=== PATIENT | male | born 1955 | race Caucasian/White ===

== ENCOUNTER 2023-11-22 09:24 | Outpatient (CLI) | payer MEDICARE, SELFPAY ==
[2023-11-22 10:13] LABS: Basophils % 0.7 % (0.1-2.0); Eosinophils # 0.3 K/mm3 (0.0-0.4); Eosinophils % 5.7 % (0.1-12.0); Hemoglobin 15.1 g/dL (14.1-18.0); Lymphocytes # 1.4 K/mm3 (0.7-4.5); Lymphocytes % 22.4 % (10-50); Mean Corpuscular HGB Conc 32.8 g/dL (31.8-35.4); Mean Corpuscular Volume 97.6 fl (80-94); Mean Platelet Volume 8.1 fl (7.4-10.4); Monocytes # 0.6 K/mm3 (0.1-1.0); Monocytes % 9.3 % (1.7-9.3); Neutrophils # 3.8 K/mm3 (1.8-7.8); Platelet Count 316 K/mm3 (142-424); Red Blood Count 4.71 M/mm3 (4.60-6.20); Red Cell Distribution Width 12.8 % (11.5-17.5); White Blood Count 6.1 K/mm3 (4.8-10.8)
[2023-11-22 10:33] LABS: Alanine Aminotransferase 14 U/L (12-78); Alkaline Phosphatase 82 U/L (38-126); Aspartate Amino Transferase 32 U/L (17-59); Bilirubin,Total 0.9 mg/dl (0.2-1.3); Blood Urea Nitrogen 7 mg/dl (9-20); Calcium 9.4 mg/dl (8.4-10.2); Carbon Dioxide 26 mmol/L (22.0-30.0); Chloride 98 mmol/L (98-107); Cholesterol 219 mg/dl (140-200); Estimated Glomerular Filt Rate 111 ml/min (>60); GFR (African American) 135 ML/MIN (>60); Glucose 106 mg/dl (74-100); Triglycerides 62 mg/dl (30-150); VLDL Cholesterol 12 mg/dL (0-40)
[2023-11-22 10:43] LABS: Albumin Level 4.2 g/dl (3.5-5.0); Albumin/Globulin Ratio 1.3 (1.1-1.8); Anion Gap 9.2 mEq/L (5-15); Chol/HDL Ratio 2.6 (1-3.5); Globulin 3.2 g/dL (1.3-3.2); HDL Cholesterol 85 mg/dl (40-60); Potassium 5.2 mmoL/L (3.5-5.1); Sodium 128 mmol/L (136-145); Total Protein,Serum 7.4 g/dl (6.3-8.2)
[2023-11-22 10:44] LABS: Direct LDL Cholesterol 106.85 mg/dL (100-129)
[2023-11-22 11:04] LABS: Prostate Specific Ag Screen 6.4 ng/ml (0.0-4.0); Thyroid Stimulating Hormone 2.34 uIU/mL (0.465-4.68)
== END 2023-11-22 23:59 ==
PROVIDERS: PCP Nurse Practitioner Family; Visit Provider Nurse Practitioner Family
DX: R03.0 Elevated blood-pressure reading, without diagnosis of hypertension; E87.1 Hypo-osmolality and hyponatremia; Z12.5 Encounter for screening for malignant neoplasm of prostate
CPT/HCPCS: 36415; 80053; 80061; 82533; 84443; 85025; G0103

== ENCOUNTER 2023-12-05 08:52 | Outpatient (CLI) | payer MEDICARE, SELFPAY ==
[2023-12-05 09:06] LABS: Microscopic, Urine URINE MICROSCOPIC (MICROSCOPIC)
--- NOTE | 2023-12-05 09:35 | XR_ITS ---
FINAL REPORT CLINICAL HISTORY: COUGH,HYPONATREMIA FINDINGS: TWO-VIEW CHEST The heart size is normal. The mediastinum is normal. The lungs are clear. There is no pneumothorax. IMPRESSION: No acute cardiopulmonary process. Reviewed, Interpreted and Dictated by Levi Smith MD Transcribed by Zoë Redd Authenticated and [facility]
[2023-12-05 09:40] LABS: Appearance,Urine CLEAR (Clear); Bilirubin,Urine Negative (Negative); Blood, Urine Negative (Negative); Color,Urine YELLOW (Yellow); Glucose,Urine (UA) Negative (Negative); Ketones,Urine Negative (Negative); Leukocyte Esterase,Urine TRACE (Negative); Nitrate,Urine Negative (Negative); Protein,Urine Negative (Negative); Urobilinogen,Urine 0.2 EU/dl (0.2)
[2023-12-05 10:47] LABS: Chloride 98 mmol/L (98-107); Potassium 4.4 mmoL/L (3.5-5.1); Sodium 129 mmol/L (136-145)
[2023-12-05 10:50] LABS: Anion Gap 10.4 mEq/L (5-15); Blood Urea Nitrogen 8 mg/dl (9-20); Calcium 8.6 mg/dl (8.4-10.2); Carbon Dioxide 25 mmol/L (22.0-30.0); Estimated Glomerular Filt Rate 96 ml/min (>60); GFR (African American) 116 ML/MIN (>60); Glucose 93 mg/dl (74-100)
[2023-12-05 11:54] LABS: Squamous Epithelial Cell,Urine Occasional #/hpf (0-5)
[2023-12-06 09:14] LABS: PSA, Free 0.51 ng/mL; Prostate Specific Ag 4.1 ng/mL (0.0-4.0)
[2023-12-06 10:14] LABS: Sodium, Urine 64 mmol/L (Not Estab.)
[2023-12-07 06:21] LABS: Osmolality, Urine 302 mOsmol/kg (.)
== END 2023-12-05 23:59 ==
LOC: RAD 08:57
PROVIDERS: PCP Nurse Practitioner Family; Visit Provider Nurse Practitioner Family
DX: R05.3 Chronic cough (principal); E87.1 Hypo-osmolality and hyponatremia; E87.5 Hyperkalemia; R97.20 Elevated prostate specific antigen [PSA]
CPT/HCPCS: 36415; 71046; 80048; 81001; 83935; 84153; 84154; 84300

== ENCOUNTER 2023-12-26 10:00 | Outpatient (CLI) | payer MEDICARE, BC, SELFPAY ==
--- NOTE | 2023-12-26 10:04 | CT_ITS ---
FINAL REPORT CLINICAL HISTORY: CHRONIC COUGH COMPARISON: None FINDINGS: Axial CT images of the chest were obtained with contrast. Coronal and sagittal reformatted images were also obtained. This study was performed with techniques to keep radiation doses as low as reasonably achievable, (ALARA). Individualized dose reduction techniques using automated exposure control or adjustment of mA and/or KV according to the patient's size were employed. There is no evidence of mediastinal or hilar mass or adenopathy. No axillary mass or adenopathy is identified. A hiatal hernia is present, small. Moderate coronary artery calcifications are present. There are mild changes of emphysema and mild scarring. There is a 16 mm spiculated nodule in the posterior right upper lobe along the major fissure, worrisome for neoplasm. No localized pulmonary inflammatory process is identified. Limited images of the upper abdomen reveal no mass or localized inflammatory process. IMPRESSION: 16 mm spiculated mass in the right upper lobe posteriorly, along the major fissure. This mass is worrisome for neoplasm. Would recommend either PET CT or possible CT-guided biopsy. Reviewed, Interpreted and Dictated by Renzo Benitez III, MD Transcribed by Lindsay Baker Authenticated and . [facility]
[2023-12-26] MEDS: IOPAMIDOL-370 (76%);100ML BOTTLE 75 ML IV (10:21)
[2023-12-26] MEDS: SODIUM CHLORIDE 0.9% 10ML SYR (RAD ONLY) 10 ML IV (10:21)
== END 2023-12-26 23:59 ==
PROVIDERS: PCP Nurse Practitioner Family; Visit Provider Nurse Practitioner Family
DX: R05.3 Chronic cough (principal); E87.1 Hypo-osmolality and hyponatremia
CPT/HCPCS: 71260; Q9967

== ENCOUNTER 2024-04-01 09:27 | Day surgery (SDC) | payer MEDICARE, BC, SELFPAY ==
[2024-03-31 09:53] VITALS: BMI 25.0
[2024-04-01] VITALS (15 sets, daily range): BP systolic 131–178; BP diastolic 74–95; PULSE 76–91; RESP 18; TEMP 36.4–37.1; O2SAT 91–100; BMI 25.0
[2024-04-01] MEDS: LACTATED RINGERS 1000ML 1,000 ML 100 ML IV (09:40)
--- NOTE | 2024-04-01 09:57 | HMH.SCOPE ---
Procedure: Date: 04/01/24 Patient Date of :: 1955 Procedure Performed:: Colonoscopy with polypectomy Indications:: Positive Cologuard Performing Provider:: Ulisses Edwards MD Referring Provider:: . Sedation:: Monitored anesthesia care Procedure:: After informed consent was obtained the patient was taken to the endoscopy suite. Sedation ensued after the patient was transferred to the left lateral decubitus position. Pulse, blood pressure, and oxygen saturation were monitored throughout the procedure. Digital rectal exam revealed no significant abnormality. The colonoscope was placed in position. The entire colon was evaluated. The colonoscope was carefully removed and the patient was transferred to recovery in stable condition. Please see findings and specimens below for detail. Findings:: Bowel preparation fair to moderate Fairly severe spasticity/lack of relaxation Moderate tortuosity Mild prostatic enlargement Mild sigmoid diverticulosis Polyps (see specimens) Specimens:: Large complex lobulated sessile polyp at 60 cm (cold snare and tattoo) Polyp at 25 cm (cold snare) Recommendations:: Timing of repeat colonoscopy is pending pathology but likely be around 3 months with extended bowel preparation secondary to fair to moderate preparation, spasticity/lack of relaxation, and size/nature of polyp at 60 cm (note piecemeal cold snare excision and tattoo placement) Complications:: No immediate Estimated blood obtained (mL): 1 Colonoscopy Component Colonoscopy Component Was a colonoscopy performed during today's procedure?: Yes Recommended follow up colonoscopy of at least 10 years?: No If no, follow up colonoscopy recommended in ___ years?: (See above) Reason for not recommending >/= 10 yr follow-up interval?: (See above)
--- NOTE | 2024-04-01 10:04 | P.PNANES_ITS ---
[facility] Disclaimer: The information contained in this section may have been updated after the patient was seen, as this information can be updated by other users. Medical History Nodule of right lung Surgical History History of surgery on upper extremity History of hernia surgery Family History Other Diabetes Hypertension Social History Smoking Status: Former smoker alcohol intake: never substance use type: denies use current occupational status: retired Travel in the last 8 weeks: None [facility] Anesthesia Checklist Patient Identification Patient Identification: Arm Band and Verbal (Name & ) Structural Data Admitted From: Home Planned Operative Procedure/s: Colonoscopy Consent for Planned Operative Procedure(s) Verified: Yes Verified Documents: Surgical Consent and History and Physical NPO Status Verified Time NPO: 08:00 Chart Verification Results Verified: CBC, BMP and Chest Xray Additional verifications Patient : No Anesthesia Reactions: No Cardiovascular Assessment Heart Sounds: S1 & S2 Pulse Rhythm: Irregular Peripheral Edema: No Airway Assessment Mallampati Score:: Class II C-Spine Mobility Assessed: Yes (FROM) Dentition: Partials (Nothing loose per pt.) Neurological Assessment Level of Consciousness: Awake, Alert, Appropriate and Follows Commands Hx Seizures: No Numbness or tingling in extremities: No Anesthesia Plan Anesthesia Risk discussed: Yes Anesthesia Plan: Verified ASA Class: II Anesthesia Type: MAC
--- NOTE | 2024-04-01 10:54 | P.PNANES_ITS ---
[facility] Anesthesia Record Part I Anesthesia Record I Intake, IV Amount: 400 Hydration: Adequate Estimated blood loss (mL): 5 Urine output (mL): 0 Blood Products used (#): none Blood Pressure: 131/74 SaO2: 100 Pulse Rate: 80 Airway Patency: Patent Respiratory Rate: 18 Temperature: 98.8 F Patient is:: Awake (Talking) and Stable Stable to PACU at:: 10:55
== END 2024-04-01 12:50 | disposition home or self-care (01) ==
PROVIDERS: PCP Nurse Practitioner Family; Visit Provider Surgery
PROC: 0DJD8ZZ Inspection of Lower Intestinal Tract, Via Natural or Artificial Opening Endoscopic (ICD-10-PCS; CPT 45378; principal; 2024-04-01 10:30)
DX: R19.5 Other fecal abnormalities (principal); K56.2 Volvulus; N40.0 Benign prostatic hyperplasia without lower urinary tract symptoms; K57.30 Diverticulosis of large intestine without perforation or abscess without bleeding; D12.4 Benign neoplasm of descending colon; K63.5 Polyp of colon
CPT/HCPCS: 45385

== ENCOUNTER 2024-04-25 14:48 | Outpatient (CLI) | payer MEDICARE, BC, SELFPAY ==
--- NOTE | 2024-04-25 14:49 | CT_ITS ---
FINAL REPORT TECHNIQUE: Axial CT images were performed from the lung apices through the upper abdomen. Coronal and sagittal reformats were submitted. This study was performed with techniques to keep radiation doses as low as reasonably achievable (ALARA). Individualized dose reduction techniques using automated exposure control or adjustment of mA and/or kV according to the patient's size were employed. CLINICAL HISTORY: 3-month follow-up RUL COMPARISON: 12/26/2023 FINDINGS: There is no axillary adenopathy. There is no hilar or mediastinal mass or adenopathy. Severe left coronary artery calcifications are again noted. Heart size is normal. There is wall thickening of the thoracic esophagus, which is nonspecific and favor inflammatory change. There is no pericardial or pleural effusion. Limited images of the upper abdomen are unremarkable. Mild changes of emphysema and mild scarring are present. The nodule seen on the prior CT of December 26 in the right upper lobe is visually larger now, measures 19 mm as opposed to 16 mm on the prior exam. No new nodules or masses identified. IMPRESSION: The nodule seen in the right upper lobe on the prior CT is larger, now measures 19 mm as opposed to 16 mm. Would recommend additional follow-up chest CT or biopsy. Nonspecific esophageal wall thickening, favor inflammatory. Correlation with endoscopy might be helpful. Reviewed, Interpreted and Dictated by Renzo Benitez III, MD Transcribed by Lindsay Baker Authenticated and . [facility]
== END 2024-04-25 23:59 | disposition home or self-care (01) ==
LOC: RAD 14:49
PROVIDERS: PCP Nurse Practitioner Family; Visit Provider Internal Medicine Pulmonary Disease
DX: R91.8 Other nonspecific abnormal finding of lung field (principal); Z87.891 Personal history of nicotine dependence
CPT/HCPCS: 71250

== ENCOUNTER 2024-07-22 08:21 | Day surgery (SDC) | payer MEDICARE, BC, SELFPAY ==
[2024-07-18 13:19] VITALS: BMI 24.3
--- OUTSIDE RECORDS SUMMARY | 2024-07-22 08:24 | XMS_ITS ---
Author Organization [facility] Address [address] [place] [address] Care Team Providers Care Temperature Control Inspector Name Role Phone Nehal Gopi Primary Care Provider GOPI CALVERT Unavailable Unavaila ble Allergies No Known Allergies Results Component Value Reference Range Notes M-Complete Blood Count Auto Diff Reviewed date:11/26/2023 01:48:48 PM Interpretation: Performing Lab: Notes/Report: WBC 6.1 4.8-10.8 K/mm3 RBC 4.71 4.60-6.20 M/mm3 HGB 15.1 14.1-18.0 g/dL HCT 46.0 42.0-52.0 % MCV 97.6 80-94 fl MCH 32.0 27.0-31.2 pg MCHC 32.8 31.8-35.4 g/dL RDW 12.8 11.5-17.5 % PLT 316 142-424 K/mm3 MPV 8.1 7.4-10.4 fl NE% 62.0 37.0-80.0 % LY% 22.4 10-50 % MO% 9.3 1.7-9.3 % EO% 5.7 0.1-12.0 % BA% 0.7 0.1-2.0 % NE# 3.8 1.8-7.8 K/mm3 LY# 1.4 0.7-4.5 K/mm3 MO# 0.6 0.1-1.0 K/mm3 EO# 0.3 0.0-0.4 K/mm3 BA# 0.0 0-0.2 K/mm3 M-Comprehensive Metabolic Pa ainsley Reviewed date:11/26/2023 01:48:48 PM Interpretation: Performing Lab: Notes/Report: NA 128 136-145 mmol/L K 5.2 3.5-5.1 mmoL/L CL 98 98-107 mmol/L CO2 26 22.0-30.0 mmol/L GAP 9.2 5-15 mEq/L BUN 7 9-20 mg/dl CREATT 0.70 0.66-1.25 mg/dl GFRAA 135 >60 ML/MIN EGFR 111 >60 ml/min GLU 106 74-100 mg/dl CA 9.4 8.4-10.2 mg/dl BILIT 0.9 0.2-1.3 mg/dl AST 32 17-59 U/L ALT 14 12-78 U/L TP 7.4 6.3-8.2 g/dl ALB 4.2 3.5-5.0 g/dl GLOB 3.2 1.3-3.2 g/dL AGRATIO 1.3 1.1-1.8 ALP 82 38-126 U/L M-Lipid Panel Reviewed date:11/24/2023 12:08:48 PM Interpretation: Performing Lab: Notes/Report: Patient Fasting? Y TRIG 62 30-150 mg/dl CHOL 219 140-200 mg/dl DLDL 106.85 100-129 mg/dL VLDL 12 0-40 mg/dL HDL 85 40-60 mg/dl CHLHDL 2.6 1-3.5 M-Prostate Specific Ag Scree n Reviewed date:11/26/2023 01:48:48 PM Interpretation: Performing Lab: Notes/Report: PSASC 6.4 0.0-4.0 ng/ml M-Thyroid Stimulating Hormon e Reviewed date:11/24/2023 12:08:40 PM Interpretation: Performing Lab: Notes/Report: TSH 2.34 0.465-4.68 uIU/mL Reason For Referral Reason Please send screenin g kit Diagnosis 1 Colon cancer screeni porter (Z12.11) Referral Organization [facility] Referring Provider First Name Gopi Referring Provider Last Name Nehal Referring Provider Speciality Family Pra ctice Referred Provider Martin pearce ence Referral Priority Routine REASON FOR VISIT Est. Care -check up, fasting Medications Medication SIG (Take, Route, Fr equency, Duration) Notes Start Date End Date Status ProAir HFA 90 mcg/inh 2 puff(s) inhaled every 6 hours as needed for cough or shortness of breath for 30 days Active Social History Tobacco Use: Social History Observation Description Date Details (start date - stop date) Former Smoker NA - NA Smoking: Question Answer Notes Are you a: former smoker How long has it been since you last smoked? > 10 years Problems Problem Type SNOMED Code ICD Code Onset Dates Problem Status W/U Status Risk Notes Problem 36985000 Chronic cough (R05.3) Active confirmed Problem 670284332 Blood pressure elevated without history of HTN (R03.0) Active confirmed Vital Signs Temperature 98.3 degrees Fahrenheit 11/22/19 24 Blood pressure systolic 154 mm Hg 11/22/19 24 Blood pressure diastolic 70 mm Hg 024 Heart Rate 92 /min 11/22/2023 Height 65.8 in 11/22/2023 Weight 158.4 lbs 11/22/2023 BMI 25.72 kg/m2 11/22/2023 Encounters Encounter Location Date Provider Diagnosis [facility] [address] [place] [address] 11/22/2023 Gopi Calvert Medicare annual wellness visit, initial Z00.00 ; Screening PSA (prostate specific antigen) Z12.5 ; Blood pressure elevated without history of HTN R03.0 ; Chronic cough R05.3 ; BMI 25.0-25.9,adult Z68.25 and Colon cancer screening Z12.11 Assessments Encounter Date Diagnosis (ICD Code) Assessment Notes Treatment Notes Treatment Clinical Notes 11/22/2023 Medicare annual wellness visit, initial (ICD-10 - Z00.00) Written reminders provided for PCV20 and Shingrix. Agrees to Cologuard testing. Does not quite meet criteria for lung cancer screening. 11/22/2023 Screening PSA (prostate specific antigen) (ICD-10 - Z12.5) 11/22/2023 Blood pressure elevated without history of HTN (ICD-10 - R03.0) encouraged to monitor outside of office, goal < 130/80, will need FU and treatment if elevated 11/22/2023 Chronic cough (ICD-10 - R05.3) 11/22/2023 BMI 25.0-25.9,adult (ICD-10 - Z68.25) 11/22/2023 Colon cancer screening (ICD-10 - Z12.11) Plan Of Treatment Medication Medication Name Sig Start Date Stop Date Notes ProAir HFA 90 mcg/inh 2 puff(s) inhaled every 6 hours as needed for cough or shortness of breath for 30 days Treatment Notes Assessment Notes Medicare annual wellness visit, initial Written reminders provided for PCV20 and Shingrix. Agrees to Cologuard testing. Does not quite meet criteria for lung cancer screening. Blood pressure elevated with out history of HTN encouraged to monitor outside of office, goal < 130/80, will need FU and treatment if elevated Referrals Referral Date Details 12/09/2023 12/09/2023, Please s end screening kit , [facility] cologuard Next Appt Details Follow Up: 1 Year, Reason: Progress Notes * MARYLeightonfaisalhDOB:1955 ( 68 yo M)Acc No.[id number]:11/22/2023 Patient:?MARYLeightonRuben Provider:?NATI Lombardi :1955???Age:68 Y???Sex:Male Navjot e:11/22/2023 Address:[address] [place] [address] , [place], [id number] Subjective: * Chief Complaints: * ???1. Est. Care -check up. 2 . Fasting. * HPI: ???gen:? New to [place]. Retired from [employer]. Always had annual exam with extensive labs, CXR, EKG because of occupational exposures, no complications ever noted. ?Multivitamin ?Requesting refill of albuterol inhaler, last filled over a year ago. Questionable asthma, at night, dry cough, resolves with one puff of albuterol. CXR negative in the past ?BP high at dental office about 2 months ago. * ROS:?RESPIRATORY:?no?Shortness of breath.?no?Chest pain.?no?Chest congestion.?Cough?yes.?CARDIOLOGY:?Reviewed, No Symptoms Reported:?Yes.?CONSTITUTIONAL:?Reviewed, No Symptoms Reported:?Yes.?DERMATOLOGY:?Reviewed, No Symptoms Reported:?Yes.?MALE REPRODUCTIVE:?Reviewed, No Symptoms Reported:?Yes.?GASTROENTEROLOGY:?Reviewed, No Symptoms Reported:?Yes.?MUSCULOSKELETAL:?Joint stiffness?yes,?intermittent.?NEUROLOGY:?Reviewed, No Symptoms Reported:?Yes.?PSYCHOLOGY:?Reviewed, No Symptoms Reported:?Yes.?UROLOGY:?Reviewed, No Symptoms Reported:?Yes.? * Medical History:?Medical His tory Verified. * Surgical History:?rt shoulde r repair 2016, hernia repair 2018. * Hospitalization/Major Diagno stic Procedure:?Denies Past Hospitalization. * Family History:?Father: dece ased, 86 yrs, natural causes.?Mother: , 80 yrs, natural causes.?Paternal Grand Father: .?Paternal Grand Mother: .?Maternal Grand Father: .?Maternal Grand Mother: .?Siblings: alive.?1 daughter(s) - healthy. .? * Social History:?Smoking?Are you a:?former smoker,?How long has it been since you last smoked??> 10 years.?Recreational drug use: no. Exercise: yes. Home smoke detector use: yes. Caffeine: yes, frequency: coffee. Living Will: No. Alcohol: socially, Type: , Frequency: ,Years: , Determination:. Sexually active: yes. Travel outside [place]: no. Occupation: Retired. * Medications:?Taking ProAir H FA 90 mcg/inh aerosol 2 puff(s) inhaled every 6 hours , Medication List reviewed and reconciled with the patient * Allergies:?N.K.D.A. Objective: * Vitals:?Nurse: angie, Temp: 98. 3, RR: 18, HR: 92, BP: 154/70, Ht: 65.8, Wt: 158.4, BMI:25.72. * Examination: ???General Examination: ?General?Pleasant and Cooperative, NAD on RA,.?Oral cavity:?Moist membranes.?Heart:?Regular Rate and Rhythm, no murmur, rubs or gallops.?HEENT:?unremarkable.?Lungs:?clear to auscultation,.?Abdomen:?soft, NT/ND, BS present.?Neurologic Exam:?Alert and oriented x 3.?Skin:?without acute rashes.?Peripheral pulses:?normal (2+) bilaterally.?Extremities:?no clubbing, no edema,.?neck?supple,, no lymphadenopathy,, no thyromegaly,.?Psych?Normal Mood/Affect.? Assessment: * Assessment: 1.?Medicare annual wellness visit, initial - Z00.00 (Primary)?2.?Screening PSA (prostate specific antigen) - Z12.5?3.?Blood pressure elevated without history of HTN - R03.0?4.?Chronic cough - R05.3?5.?BMI 25.0-25.9,adult - Z68.25?6.?Colon cancer screening - Z12.11? Plan: * Treatment: 2.?Screening PSA (prostate s pecific antigen)?LAB: M-Prostate Specific Ag Screen (Collection Date & Time - 11/22/2023 09:35 AM) ? Value Reference Range ?Prostate Specific Ag Screen 6.4 H 0.0-4.0 - ng/ml 3.?Blood pressure elevated without history of HTN?LAB: M-Complete Blood Count Auto Diff (Collection Date & Time - 11/22/2023 09:35 AM)* ? Value Reference Range ?White Blood Count 6.1 4.8-1 0.8 - K/mm3 * ?Red Blood Count 4.71 4.60-6. 20 - M/mm3 * ?Hemoglobin 15.1 14.1-18.0 - g/dL * ?Hematocrit 46.0 42.0-52.0 - % * ?Mean Corpuscular Volume 97.6 H 80-94 - fl * ?Mean Corpuscular Hemoglobin 32.0 H 27.0-31.2 - pg * ?Mean Corpuscular HGB Conc 32.8 31.8-35.4 - g/dL * ?Red Cell Distribution Width 12.8 11.5-17.5 - % * ?Platelet Count 316 142-424 - K/mm3 * ?Mean Platelet Volume 8.1 7. 4-10.4 - fl * ?Neutrophils % 62.0 37.0-80.0 - % * ?Lymphocytes % 22.4 10-50 - % * ?Monocytes % 9.3 1.7-9.3 - % * ?Eosinophils % 5.7 0.1-12.0 - % * ?Basophils % 0.7 0.1-2.0 - % * ?Neutrophils # 3.8 1.8-7.8 - K/mm3 * ?Lymphocytes # 1.4 0.7-4.5 - K/mm3 * ?Monocytes # 0.6 0.1-1.0 - K /mm3 * ?Eosinophils # 0.3 0.0-0.4 - K/mm3 * ?Basophils # 0.0 0-0.2 - K/m m3 ?LAB: M-Comprehensive Metabolic Panel (Collection Date & Time - 11/22/2023 09:35 AM)* ? Value Reference Range ?Sodium 128 L 136-145 - mmol/ L * ?Potassium 5.2 H 3.5-5.1 - mmo L/L * ?Chloride 98 98-107 - mmol/ L * ?Carbon Dioxide 26 22.0-30. 0 - mmol/L * ?Anion Gap 9.2 5-15 - mEq/L * ?Blood Urea Nitrogen 7 L 9-2 0 - mg/dl * ?Creatinine,Serum 0.70 0.66-1 .25 - mg/dl * ?GFR () 135 >60 - ML/MIN * ?Estimated Glomerular Filt Rate 111 >60 - ml/min * ?Glucose 106 H 74-100 - mg/dl * ?Calcium 9.4 8.4-10.2 - mg/d l * ?Bilirubin,Total 0.9 0.2-1.3 - mg/dl * ?Aspartate Amino Transferase 32 17-59 - U/L * ?Alanine Aminotransferase 14 12-78 - U/L * ?Total Protein,Serum 7.4 6.3 -8.2 - g/dl * ?Albumin Level 4.2 3.5-5.0 - g/dl * ?Globulin 3.2 1.3-3.2 - g/dL * ?Albumin/Globulin Ratio 1.3 1.1-1.8 - * ?Alkaline Phosphatase 82 38 -126 - U/L ?LAB: M-Lipid Panel (Collection Date & Time - 11/22/2023 09:35 AM)* ? Value Reference Range ?Triglycerides 62 30-150 - mg/dl * ?Cholesterol 219 H 140-200 - m g/dl * ?LDL Cholesterol 106.85 100-129 - mg/dL * ?VLDL Cholesterol 12 0-40 - mg/dL * ?HDL Cholesterol 85 H 40-60 - mg/dl * ?Chol/HDL Ratio 2.6 1-3.5 - ?LAB: M-Thyroid Stimulating Hormone (Collection Date & Time - 11/22/2023 09:35 AM)* ? Value Reference Range ?Thyroid Stimulating Hormone 2.34 0.465-4.68 - uIU/mL Notes: encouraged to monitor outside of office, goal < 130/80, will need FU and treatment if elevated??4.?Chronic cough? Refill ProAir HFA aerosol, 90 mcg/inh, 2 puff(s), inhaled, every 6 hours as needed for cough or shortness of breath, 30 days, 1, Refills 1.??5.?Colon cancer screening? Referral To:[facility] cologuard ?Reason:Please send screening kit * Procedure Codes:?G0439 ANNUA L WELLNESS VST; PPS SUBSQT VST, 1124F ADVANCED DIRECTIVE - NO LIVING WILL, G8482 FLU IMMUNIZE ORDER/ADMIN, G9990 No pneum vax admin 60+, 3017F COLORECTAL CA SCREEN DOC REV, G8420 BMI documented as normal, no follow up required., G8510 NEGATIVE SCREENING F/U NOT REQUIRED, G9903 Pt scrn tbco id as non user, G8950 PREHTN/HTN BP DOC & INDICAT F/U DOC * Preventive Medicine:? ??Counseling:?Living will?Additional information provided.? ??ESDRAS Screening:?Falls: Future screening for fall risks?Have you had two or more falls in the past year??No,?Have you had any falls with injury in the past year??No.? ??Depression Screening:?PHQ 2?Feeling down depressed or hopeless?No.? ??Immunizations:?influenza?Have you had a flu shot since the most recent July 13 ??Yes.?COVID?Completed series.? ??Screening / Special Tests:?Colonoscopy?Cologuard, agreeable.?PSA?no history of cancer or symptoms, PSA requested.?Lung Cancer Screening?smoked around 20-25 years, 1ppd, stopped 15 years ago (16 years in May).? * Follow Up:?1 Year * * Sign off status: Completed true * Provider:?NATI Lombardi Date:? 11/22/2023 Generated for Daryl buenrostro/Ketlon/Rkitting on:?07/22/2024 08:24 AM EDT History and Physical Notes * Examination Category Sub-Category Detail Notes General Examination HEENT: unremarkable Heart: Regular Rate and Rhy thm, no murmur, rubs or gallops Lungs: clear to auscultatio n, Abdomen: soft, NT/ND, BS pres ent Extremities: no clubbing, no cullen a, Skin: without acute rashes Neurologic Exam: Alert and oriented x 3 Oral cavity: Moist membranes Peripheral pulses: normal (2+) bilatera lly neck supple,, no lymphade nopathy,, no thyromegaly, General Pleasant and Coopera tive, NAD on RA, Psych Normal Mood/Affect Consultation Request Notes Referral Date Referring Provider Referred Provider Not es 12/09/2023 Gopi Calvert, [facility] Please send screening kit
--- OUTSIDE RECORDS SUMMARY | 2024-07-22 08:24 | XMS_ITS | Patient Health Record ---
Author Organization [facility] Address [address] [place] [address] Care Team Providers Care Lining Sewer Name Role Phone Gopi Calvert Primary Care Provider [phone] GOPI CALVERT Unavailable Unavaila Meet Escamilla Unavailable [phone] Allergies No Known Allergies Results Component Value [...] Performing Lab: Notes/Report: TSH 2.34 0.465-4.68 uIU/mL X ray : Chest Reviewed date:12/06/2023 01:47:49 PM Interpretation: Performing Lab: Notes/Report: CT Scan : Chest with Contras t Reviewed date:12/28/2023 01:00:55 PM Interpretation: Performing Lab: Notes/Report: M-Thyroid Stimulating Hormon e Reviewed date:12/13/2023 08:37:30 PM Interpretation: Performing Lab: Notes/Report: DUP ORDERS Cancel Comments M-Basic Metabolic Panel Reviewed date:12/11/2023 03:04:08 PM Interpretation: Performing Lab: Notes/Report: NA 129 136-145 mmol/L K 4.4 3.5-5.1 mmoL/L CL 98 98-107 mmol/L CO2 25 22.0-30.0 mmol/L GAP 10.4 5-15 mEq/L BUN 8 9-20 mg/dl CREATT 0.80 0.66-1.25 mg/dl GFRAA 116 >60 ML/MIN EGFR 96 >60 ml/min GLU 93 74-100 mg/dl CA 8.6 8.4-10.2 mg/dl M-Urinalysis and Microscopic Reviewed date:12/06/2023 08:14:47 AM Interpretation: Performing Lab: Notes/Report: UCOL YELLOW Yellow UAPP CLEAR Clear UPH 7.0 5.0-8.5 USG 1.010 1.005-1.030 UPRO Negative Negative UGLU Negative Negative UKET Negative Negative UBLD Negative Negative UNIT Negative Negative UBIL Negative Negative UURO 0.2 0.2 EU/dl ULEU TRACE Negative UMICU URINE MICROSCOPIC MICROSCOPIC URBC None 0-3 #/hpf UWBC 3-5 0-3 #/hpf USQEPI Occasional 0-5 #/hpf UBACT None NONE /lpf M-Cortisol Reviewed date:11/24/2023 12:07:55 PM Interpretation: Performing Lab: Notes/Report: CLINT 10.7 6.2-19.4 ug/dL Please Note: The reference interval and flagging for this test is for an AM collection. If this is a PM collection please use: Cortisol PM: 2.3-11.9 Performed at: [facility] [employer] [id number] Bicycle Ii Assembler: Beka Snowden PhD, Phone: [phone] M-Osmolality, Urine Reviewed date:12/07/2023 11:28:08 AM Interpretation: Performing Lab: Notes/Report: UOSMO 302 . mOsmol/kg 24 hr : 300 - 900 Random: 50 - 1400 After 12hr fluid restriction: >850 Performed at: [address], [place] [id number] Bicycle Ii Assembler: Seema Foote MD, Phone: [phone] M-Sodium, Urine Reviewed date:12/07/2023 11:28:11 AM Interpretation: Performing Lab: Notes/Report: URNA 64 Not Estab. mmol/L Performed at: [address] [id number] Bicycle Ii Assembler: Beka Snowden PhD, Phone: [phone] M-PSA Total+% Free Reviewed date:12/07/2023 11:30:36 AM Interpretation: Performing Lab: Notes/Report: PSATF1 4.1 0.0-4.0 ng/mL Edi ECLIA methodology. According to the [employer], Serum PSA should decrease and remain at undetectable levels after radical prostatectomy. The AUA defines biochemical recurrence as an initial PSA value 0.2 ng/mL or greater followed by a subsequent confirmatory PSA value 0.2 ng/mL or greater. Values obtained with different assay methods or kits cannot be used interchangeably. Results cannot be interpreted as absolute evidence of the presence or absence of malignant disease. PSATF2 0.51 N/A ng/mL Edi ECLIA met hodology. PSATF3 12.4 . % The table below lists the probability of prostate cancer for men with non-suspicious JENNIE results and total PSA between 4 and 10 ng/mL, by patient age (Brian et al, GARY 1998, 279:1542). % Free PSA 50-64 yr 65-75 yr 0.00-10.00% 56% 55% 10.01-15.00% 24% 35% 15.01-20.00% 17% 23% 20.01-25.00% 10% 20% >25.00% 5% 9% Please note: Brian et al did not make specific recommendations regarding the use of percent free PSA for any other population of men. Performed at: [address] [id number] Bicycle Ii Assembler: Beka Snowden PhD, Phone: [phone] Reason For Referral Reason Please send screenin g kit Diagnosis 1 Colon cancer screeni ng (Z12.11) Referral Organization [facility] Referring Provider First Name Gopi Referring Provider Last Name Nehal Referring Provider Speciality Family Pra ctice Referred Provider cologuard, Exact Sci ence Referral Priority Routine Reason [facility] - Low Sodium Referral Organization [facility] Referring Provider First Name Gopi Referring Provider Last Name Nehal Referring Provider [facility] ctice Referred Organization Referrals Referred Address [address] [place], [place],[address],[place] Referred Provider Specialty Nephrology General Notes Melany Carvalho 2023 03:14:48 PM >Referral sent through [facility] to [facility]. They will call patient with appt. Clinical Notes Melany Carvalho 2023 03:15:27 PM >, Gopi Calvert 12/27/2023 05:55:05 PM > not needed now Referral Priority Routine Reason CT scan chest with c ontrast - [facility] Referral Organization [facility] Referring Provider First Name Gopi Referring Provider Last Name Nehal Referring Provider [facility] ctice General Notes Melany Carvalho 2023 08:50:42 AM >NO precert needed, Patient notified Referral Priority Routine Referral Appointment Date 12/26/[address] Mcdonald - [facility] viktoria vated PSA Referral Organization [facility] Referring Provider First Name Gopi Referring Provider Last Name Nehal Referring Provider [facility] ctice Referral Priority Routine Referral Appointment Date 01/21/2024 Reason positive cologuard- needs colonoscopy Referral Organization [facility] Referring Provider First Name Gopi Referring Provider Last Name Nehal Referring Provider [facility] ctice General Notes María Ibarra 02:39:01 PM EST > 04/01 @ 10:30 Dr. Edwards at [facility]- mailed to pt Referral Priority Routine Medications Medication SIG (Take, Route, Frequency, Duration) Notes Start Date End Date Status Albuterol (Eqv-ProAir HFA) 90 mcg/inh INHALE 2 PUFFS BY MOUTH EVERY 6 HOURS NEEDED FOR COUGH OR SHORTNESS OF BREATH for 25 Active Social History Tobacco Use: Social History Observation Description Date Details (start date - stop date) Former Smoker NA - NA Smoking: Question Answer Notes Are you a: former smoker How long has it been since you last smoked? > 10 years Problems Problem Type SNOMED Code ICD Code Onset Dates Problem Status W/U Status Risk Notes Problem 037995896 Blood pressure elevated without history of HTN (R03.0) Active confirmed Problem 80133936 Chronic cough (R05.3) Active confirmed Vital Signs Heart Rate 92 /min 11/22/2023 Temperature 98.3 degrees Fahrenheit 11/22/2023 Blood pressure diastolic 70 mm Hg 11/22/2023 Height 65.8 in 11/22/2023 Blood pressure systolic 154 mm Hg 11/22/2023 Weight 158.4 lbs 11/22/2023 BMI 25.72 kg/m2 11/22/2023 Encounters Encounter Location Date Provider Diagnosis [facility] [address] [place] [address] 11/22/2023 Gopi Calvert Medicare annual wellness visit, initial Z00.00 ; Screening PSA (prostate specific antigen) Z12.5 ; Blood pressure elevated without history of HTN R03.0 ; Chronic cough R05.3 ; BMI 25.0-25.9,adult Z68.25 and Colon cancer screening Z12.11 [facility] [address] [place] [address] 11/08/2023 Meet Velasquez [facility] [address] [place] [address] 11/26/2023 Gopi Calvert Hyponatremia E87.1 ; Hyperkalemia E87.5 ; Chronic cough R05.3 and Elevated PSA R97.20 [facility] [address] [place] [address] 12/12/2023 Gopi Calvert Chronic cough R05.3 and Hyponatremia E87.1 Assessments Encounter Date Diagnosis (ICD Code) Assessment Notes Treat ment Notes Treatment Clinical Notes 11/22/2023 Medicare annual wellness visit, initial (ICD-10 - Z00.00) Written reminders provided for PCV20 and Shingrix. Agrees to Cologuard testing. Does not quite meet criteria for lung cancer screening. 11/22/2023 Screening PSA (prostate specific antigen) (ICD-10 - Z12.5) 11/26/2023 Hyperkalemia (ICD-10 - E87.5) 11/26/2023 Hyponatremia (ICD-10 - E87.1) 12/12/2023 Chronic cough (ICD-10 - R05.3) 11/22/2023 Blood pressure elevated without history of HTN (ICD-10 - R03.0) encouraged to monitor outside of office, goal < 130/80, will need FU and treatment if elevated 11/26/2023 Chronic cough (ICD-10 - R05.3) 12/12/2023 Hyponatremia (ICD-10 - E87.1) 11/26/2023 Elevated PSA (ICD-10 - R97.20) 11/22/2023 Chronic cough (ICD-10 - R05.3) 11/22/2023 BMI 25.0-25.9,adult (ICD-10 - Z68.25) 11/22/2023 Colon cancer screening (ICD-10 - Z12.11) Plan Of Treatment Pending Test Test Name Order Date M-Urinalysis and Microscopic 11/26/2023 M-Basic Metabolic Panel 11/26/2023 M-PSA Total+% Free 11/26/2023 M-Sodium, Urine 11/26/2023 M-Osmolality, Urine 11/26/2023 Insurance Providers Payer Name Payer Address Payer Phone Subscriber Number Group Number Insured Name Patient Relationship to Insured Coverage Start Date Coverage End Date [place] [address] [place] [place] [address] [id number] Aamlia Mckeonh Self - patient is the insured [facility] [address] [place] [address] [id number] Mike Ruben Self - patient is the insured [employer] [address] [place] [address] [address] [place] [address] [phone] ACL Amalia Mckeonh Self - patient is the insured Medical (General) History Surgical History Surgery Date(Month/Year) rt shoulder repair 2016 hernia repair 2018
--- OUTSIDE RECORDS SUMMARY | 2024-07-22 08:24 | XMS_ITS ---
Author Organization [facility] Address [address] [place] [address] Care Team Providers Care Dog Food Shredder Operator Name Role Phone Gopi Calvert Primary Care Provider RICARDO CALVERTAH AGUSTIN Unavailable Unavaila ble Results Component Value Reference Range Notes CT Scan : Chest with Contras t Reviewed date:12/28/2023 01:00:55 PM Interpretation: Performing Lab: Notes/Report: REASON FOR VISIT CT scan order Encounters Encounter Location Date Provider Diagnosis [facility] [address] [place], [place] [address] 12/12/2023 Gopi Calvert Chronic cough R05.3 and Hyponatremia E87.1 Assessments Encounter Date Diagnosis (ICD Code) Assessment Notes Treat ment Notes Treatment Clinical Notes 12/12/2023 Chronic cough (ICD-10 - R05.3) 12/12/2023 Hyponatremia (ICD-10 - E87.1) Plan Of Treatment No Information Progress Notes * MIKELeightonfaisalhDOB:1955 ( 68 yo M)Acc No.[id number]:12/12/2023 Patient:?MIKERuben :1955???Age:68 Y???Sex:Male Address:[address], [place] [address] Subjective: * Chief Complaints: * ???CT scan order * Medical History:? * Surgical History:? * Hospitalization/Major Diagno stic Procedure:? * Medications:? Objective: Assessment: * Assessment: 1.?Chronic cough - R05.3?2.? Hyponatremia - E87.1? Plan: * Treatment: * 2.?Hyponatremia?Imaging: CT Scan : Chest with Contrast* Melany Carvalho 12/12/2023 08: 48:30 AM EST > Scheduled on 12-26-23 * * Procedure Codes:? * true * Date:? Generated for Daryl buenrostro/Kelton/eTransmitting on:?07/22/2024 08:23 AM EDT
--- OUTSIDE RECORDS SUMMARY | 2024-07-22 08:24 | XMS_ITS ---
Author Organization [facility] Address [address] [facility] [address] [place] [address] Care Team Providers Care Oven Stripper Name Role Phone Jolly Calvert Primary Care Provider [phone] JOLLY CALVERTSEY Unavailable Unavaila ble Results Component Value Reference Range Notes X ray : Chest Reviewed date:12/06/2023 01:47:49 PM Interpretation: Performing Lab: Notes/Report: REASON FOR VISIT lab/xray order Encounters Encounter Location Date Provider Diagnosis [facility] [address] [place], [place] [address] 11/26/2023 Jolly Nehal Hyponatremia E87.1 ; Hyperkalemia E87.5 ; Chronic cough R05.3 and Elevated PSA R97.20 Assessments Encounter Date Diagnosis (ICD Code) Assessment Notes Treat ment Notes Treatment Clinical Notes 11/26/2023 Hyponatremia (ICD-10 - E87.1) 11/26/2023 Hyperkalemia (ICD-10 - E87.5) 11/26/2023 Chronic cough (ICD-10 - R05.3) 11/26/2023 Elevated PSA (ICD-10 - R97.20) Plan Of Treatment Pending Test Test Name Order Date M-Urinalysis and Microscopic 11/26/2023 M-Basic Metabolic Panel 11/26/2023 M-PSA Total+% Free 11/26/2023 M-Sodium, Urine 11/26/2023 M-Osmolality, Urine 11/26/2023 Progress Notes * Kaye MCKEONOB:1955 ( 68 yo M)Acc No.[id number]:11/26/2023 Patient:Ruben COSTA :1955???Age:68 Y???Sex:Male Address:[address] [place] [address] , [place] [address] Subjective: * Chief Complaints: * ???Lab/xray order * Medical History:? * Surgical History:? * Hospitalization/Major Diagno stic Procedure:? * Medications:? Objective: Assessment: * Assessment: 1.?Hyponatremia - E87.1 (Kimberlee carlos)?2.?Hyperkalemia - E87.5?3.?Chronic cough - R05.3?4.?Elevated PSA - R97.20? Plan: * Treatment: 2.?Hyperkalemia?LAB: M-Urinalysis and Microscopic ?LAB: M-Basic Metabolic Panel ?LAB: M-Osmolality, Urine3.?Chronic cough?Imaging: X ray : Chest* 4.?Elevated PSA?LAB: M-PSA Total+% Free ?LAB: M-Sodium, Urine * Procedure Codes:? * true * Date:? Generated for Daryl buenrostro/Kelton/Rkitting on:?07/22/2024 08:24 AM EDT
[2024-07-22] MEDS: LACTATED RINGERS 1000ML 1,000 ML 25 ML IV (08:35)
[2024-07-22 08:36] VITALS: BP 174/95; PULSE 79; RESP 18; TEMP 36.3; O2SAT 99
--- NOTE | 2024-07-22 09:29 | P.PNANES_ITS ---
[facility] Disclaimer: The information contained in this section may have been updated after the patient was seen, as this information can be updated by other users. Medical History Nodule of right lung Surgical History History of colonoscopy History of surgery on upper extremity History of hernia surgery Family History Other Diabetes Hypertension Social History Smoking Status: Former smoker alcohol intake: never substance use type: denies use current occupational status: retired Travel in the last 8 weeks: None [facility] Anesthesia Checklist Patient Identification Patient Identification: Verbal (Name & ) Structural Data Admitted From: Home Planned Operative Procedure/s: colonoscopy Consent for Planned Operative Procedure(s) Verified: Yes NPO Status Verified Time NPO: 00:00 Additional verifications Anesthesia Reactions: No Airway Assessment Mallampati Score:: Class II C-Spine Mobility Assessed: Yes TMJ Mobility Assessed: Yes Dentition: Good Dentition Neurological Assessment Level of Consciousness: Awake, Alert and Appropriate Anesthesia Plan Anesthesia Risk discussed: Yes Anesthesia Plan: Verified ASA Class: II Anesthesia Type: MAC
--- NOTE | 2024-07-22 09:36 | P.PCN_ITS ---
Procedure: Date: 07/22/24 Patient Date of :: 1955 Procedure Performed:: Colonoscopy Indications:: History of colon polyps Colonoscopy in March of this year was somewhat complicated by moderate bowel prepa ration and severe spasticity/lack of relaxation. Enlarged prostate noted (chronic per patient). Diverticulosis also noted. A large sessile serrated adenoma at 60 cm was excised (tattoo placed). Performing Provider:: Ulisses Edwards MD Referring Provider:: . Sedation:: Monitored anesthesia care Procedure:: After informed consent was obtained the patient was taken to the endoscopy suite. Sedation ensued after the patient was transferred to the left lateral decubitus position. Pulse, blood pressure, and oxygen saturation were monitored throughout the procedure. Digital rectal exam revealed no significant abnormality. The colonoscope was placed in position. The entire colon was evaluated. The colonoscope was carefully removed and the patient was transferred to recovery in stable condition. Please see findings and specimens below for detail. Findings:: Bowel preparation moderate to poor (fair in areas and exceedingly poor in other s) Unchanged prostatic enlargement Unchanged hemorrhoidal cushions Fairly significant spasticity (particularly sigmoid) Prior tattoo is 60/65 cm appeared normal Specimens:: None Recommendations:: Fairly short-term repeat colonoscopy secondary to limited bowel preparation on multiple occasions and size/nature of polyp noted on initial colonoscopy (deferred to the gastroenterology service). Gastroenterology consultation secondary to likely chronic constipation. Complications:: No immediate with the exception of limited bowel preparation Estimated blood obtained (mL): 0 Colonoscopy Component Colonoscopy Component Was a colonoscopy performed during today's procedure?: Yes Recommended follow up colonoscopy of at least 10 years?: No If no, follow up colonoscopy recommended in ___ years?: (See above) Reason for not recommending >/= 10 yr follow-up interval?: (See above)
[2024-07-22 09:41] VITALS: O2SAT 99
[2024-07-22 10:10] VITALS: BP 99/59; PULSE 75; RESP 16; TEMP 36.1; O2SAT 97
[2024-07-22 10:23] VITALS: BP 98/61; PULSE 75; RESP 16; O2SAT 95
[2024-07-22 10:40] VITALS: BP 111/69; PULSE 73; RESP 18; O2SAT 95
== END 2024-07-22 10:40 | disposition home or self-care (01) ==
PROVIDERS: PCP Nurse Practitioner Family; Visit Provider Surgery
PROC: 0DJD8ZZ Inspection of Lower Intestinal Tract, Via Natural or Artificial Opening Endoscopic (ICD-10-PCS; CPT 45378; principal; 2024-07-22 09:30)
DX: Z86.010 Personal history of colon polyps (principal); K64.9 Unspecified hemorrhoids
CPT/HCPCS: 45378; J7120

== ENCOUNTER 2024-07-28 13:13 | Outpatient (CLI) | payer MEDICARE, BC, SELFPAY ==
--- NOTE | 2024-07-28 13:14 | CT_ITS ---
FINAL REPORT TECHNIQUE: Axial images through the chest were performed by computed tomography. This study was performed with techniques to keep radiation doses as low as reasonably achievable, (ALARA). Individualized dose reduction techniques using automated exposure control or adjustment of mA and/or kV according to the patient's size were employed. CLINICAL HISTORY: 3-month follow-up COMPARISON: 04/25/2024 FINDINGS: Moderate coronary artery calcifications are again noted. There is wall thickening of the distal esophagus, similar to the previous exam, measuring up to 12 mm in maximum diameter. There is a dominant mass in the posterior right upper lobe again seen, bilobed, on today's exam measuring 21 x 12 mm in size. When compared with the prior CTs of 01/05/2024 and 04/25/2024, this mass is definitely larger, with an adjacent cicatricial reaction, lobular in contour, and somewhat spiculated in appearance, concerning for neoplasm. There is no pericardial or pleural effusion. No new nodules or infiltrates are identified. IMPRESSION: Dominant mass in the posterior right upper lobe again seen, as described above continues to enlarge when compared to the 2 most recent CTs. Would suggest either PET/CT or tissue sampling for further evaluation. Wall thickening of the distal esophagus, similar to the prior exam. Reviewed, Interpreted and Dictated by Levi Smith MD Transcribed by Lindsay Baker Authenticated and [facility]
== END 2024-07-28 23:59 | disposition home or self-care (01) ==
LOC: RAD 13:14
PROVIDERS: PCP Nurse Practitioner Family; Visit Provider Internal Medicine Pulmonary Disease
DX: R91.8 Other nonspecific abnormal finding of lung field (principal)
CPT/HCPCS: 71250

== ENCOUNTER 2025-04-18 12:22 | Inpatient (IN) | payer MEDICARE, BC, SELFPAY ==
--- OUTSIDE RECORDS SUMMARY | 2025-02-14 17:30 | XMS_ITS ---
Author Organization [facility] Address [address] [facility] [address] [place], [place] [address] Care Team Providers Care Sketch Artist Name Role Phone Jolly Calvert Primary Care Provider JOLLY CALVERT Unavailable Unavaila ble Migration, Provider Unavailable Unavailable REASON FOR VISIT [facility] Conversion Encounter Medications Medication SIG (Take, Route, Frequency, Duration) Notes Start Date End Date Status Furosemide 20 MG 1 tab(s) orally once a day as needed for swelling for 30 days 01/15/2025 Active Losartan Potassium 50 MG 1 tab(s) orally once a day for 30 days 01/15/2025 Active ALBUTEROL (EQV-PROAIR HFA) 90 MCG/INH 2 INH INHALED EVERY 6 HOURS NEEDED FOR SHORTNESS OF BREATH for 30 DAYS *Please review for potential replacement for e-prescription and drug interaction check* Active Encounters Encounter Location Date Provider Diagnosis [facility] [address] [facility] [address] [place], [place] [address] 02/14/2025 Provider Migration Essential hypertension I10 and Lower extremity edema R60.0 Assessments Encounter Date Diagnosis (ICD Code) Assessment Notes Treatment Notes Treatment Clinical Notes Section Notes 02/14/2025 Essential hypertension (ICD-10 - I10) 02/14/2025 Lower extremity edema (ICD-10 - R60.0) Plan Of Treatment Medication Medication Name Sig Start Date Stop Date Notes Furosemide 20 MG 1 tab(s) orally once a day as needed for swelling for 30 days 01/15/2025 Losartan Potassium 50 MG 1 tab(s) orally once a day for 30 days 01/15/2025 Progress Notes * Amalia MCKEONhDOB:1955 ( 69 yo M)Acc No.[id number]:02/14/2025 Patient: Ruben MERIDA Provider: Caroline pearce Migration :1955 A ge:69 Y S ex:Male Date:02/14/2025 Address:[address] [place] [address] , [place], [id number] Pcp:Jolly Calvert Subjective: * Chief Complaints: * [facility] . [facility] En[facility]. * Medical History: * Medications: T aking ALBUTEROL (EQV-PROAIR HFA) 90 MCG/INH AEROSOL 2 INH INHALED EVERY 6 HOURS NEEDED FOR SHORTNESS OF BREATH , Notes to Pharmacist: *Please review for potential replacement for e-prescription and drug interaction check* Objective: * Vitals: Assessment: * Assessment: 1. L ower extremity edema - R60.0 (Primary) 2 . E ssential hypertension - I10 Plan: * Treatment: 2. E ssential hypertension Refill Losartan Potassium Tablet, 50 MG, 1 tab(s), orally, once a day, 30 days, 30, Refills 2. * * Electronic signature of Prov ider Migration on 04/19/2025 at 10:05 PM EDT Sign off status: Pending * Provider: Caroline pearce Migration Date: 0 02/14/2025 Generated for Daryl buenrostro/Kelton/Masonsmitting on: 0 04/19/2025 10:05 PM EDT
[2025-04-18] VITALS (11 sets, daily range): BP systolic 143–184; BP diastolic 66–91; PULSE 76–88; RESP 16–18; TEMP 36.4–37.1; O2SAT 92–100; BMI 23.6; BMI 24.2
--- OUTSIDE RECORDS SUMMARY | 2025-04-18 12:39 | XMS_ITS | Encounter Summary ---
Author Organization Healthcare Address [address] [place] [address] Care Team Providers Care Policy Loan Calculator Name Role Phone System, Provider Not In MD Primary Care Provider Unavailable Jolly Calvert APRN Primary Care Provider [phone] Encounter Details Date Type Department Care Team (Late st Contact Info) Description 01/17/2024 Orders Only External Location [address] [place] [address] Provider, External Social History Tobacco Use Types Packs/Day Years Used Date Smoking Tobacco: Never Assessed Sex and Gender Information Value Date Recorded Sex Assigned at Not on file Legal Sex Male 3:08 PM EST Gender Identity Not on file Sexual Orientation Not on file documented as of this encounter Plan of Treatment Upcoming Encounters Date Type Department Care Team (Late st Contact Info) Description 06/11/2025 12:10 PM EDT Appointment [facility] [address] [place] [address] 06/11/2025 1:30 PM EDT Office Visit [facility] [address] [place] [address] Jimmy Mcclure, DO [address] [facility] [address] [place] [address] documented as of this encounter Procedures Procedure Name Priority Date/Time Associated Diagnosis Comments PET OUTSIDE IMAGES 01/17/2024 11:29 AM EST documented in this encounter Results * PET OUTSIDE IMAGES (01/17/2024 11:29 AM EST) Anatomical Region Laterality Modality Nuclear Medicine 01/17/2024 11:2 9 AM EST us External Provider IMG NM PROCEDURES Final Result documented in this encounter Visit Diagnoses Not on filedocumented in this encounter Care Teams Policy Loan Calculator Relationship Specialty Start Date End Date System, Provider Not In, [place] [address] PCP - General Family Medicine 08/14/24 10/01/24 Jolly Calvert APRN [address] [place], [place] [id number] PCP - General 10/02/24 documented as of this encounter
--- OUTSIDE RECORDS SUMMARY | 2025-04-18 12:39 | XMS_ITS | Encounter Summary ---
Author Organization Healthcare Address [address] [place] [address] Care Team Providers Care Freight Agent Name Role Phone System, Provider Not In MD Primary Care Provider Unavailable Jolly Calvert RECREATION ACTIVITIES COORDINATOR Primary Care Provider +1- [phone] Encounter Details Date Type Department Care Team (Late st Contact Info) Description 12/05/2023 Orders Only External Location [address] [place] [id number] Jolly Calvert, RECREATION ACTIVITIES COORDINATOR [address] [place] [address] Social History Tobacco Use Types Packs/Day Years [...] EDT Appointment [facility] A Radiology [address] [place] [address] 06/11/2025 1:30 PM EDT Office Visit Pav [facility] Head[facility] Neck & Respiratory 800 [facility], 2nd [place] [address] Jimmy Mcclure, DO [address] [facility] 1[address] [place] [phone] documented as of this encounter Procedures Procedure Name Priority Date/Time Associated Diagnosis Comments XR OUTSIDE IMAGES 12/05/2023 9:36 AM EST documented in this encounter Results * XR OUTSIDE IMAGES (12/05/2023 9:36 AM EST) Anatomical Region Laterality Modality Radiographic Deyanira ging 12/05/2023 9:36 AM EST Jolly Calvert APRN IMG XR PROCEDURES Final Re sult documented in this encounter Visit Diagnoses Not on filedocumented in this encounter Care Teams Freight Agent Relationship Specialty Start Date End Date System, Provider Not In, [place] [address] PCP - General Family Medicine 08/14/24 10/01/24 Jolly Calvert, JUAN [address] [place] [address] PCP - General 10/02/24 documented as of this encounter
--- OUTSIDE RECORDS SUMMARY | 2025-04-18 12:39 | XMS_ITS | Clinical Summary ---
Author Organization Healthcare Address [address] [place] [address] Care Team Providers Care Bathhouse Attendant Name Role Phone Jolly Calvert JUAN Primary Care Provider +1- [phone] Allergies No known active allergies Medications methocarbamol (Robaxin) 500 MG tablet Take 1 tablet (500 mg) by mouth every 6 (six) hours for 14 days. 56 tablet 4 Active Additional Information Patient not taking.Reported on 02/09/2025 oxyCODONE (Roxicodone) 5 MG immediate release tablet Take 1 tablet (5 mg) by mouth every 6 (six) hours if needed (mild - moderate pain) for up to 20 doses. 20 tablet 4 Active Additional Information Patient not taking.Reported on 10/02/2024 losartan (Cozaar) 50 MG tablet Take 1 tablet by mouth Daily. Active Active Problems Problem Noted Date Diagnosed Date Lung nodule 08/21/2024 Overview (09/13/2024): S/p R VATS Wedge w/ MLND on 09/12/2024 Encounters Date Type Department Care Team Description 02/09/2025 1:45 PM EDT Office Visit Pav [facility] Head[facility] Neck & Respiratory [address], [address] [place] [address] Camilla Dodd PA Lung nodule 02/09/2025 12:44 PM EDT - 02/09/2025 11:59 PM EDT Hospital Encounter [facility] [address], [address] [place] [address] Lung nodule Discharge Disposition: Home or Self Care 02/09/2025 Travel 02/03/2025 Travel 01/27/2025 Telephone Pav CC Head, Neck & Respiratory 800 [facility], 2nd [place] [address] Felicia Reilly RN from Last 3 Months Immunizations Immunization Administration Dates Next Due Influenza, high-dose, quadrivalent 08/12/2023 Family History Medical History Relation Name Comments No Known Problems Father No Known Problems Mother Anesthesia problems Neg Hx Malig Hyperthermia Neg Hx Relation Name Status Comments Father Mother Social History Tobacco Use Types Packs/Day Years Used Date Smoking Tobacco: Former Cigarettes 1 33 S tarted: 1975 Passive Smoke Exposure: Never Smokeless Tobacco: Never Tobacco Cessation:Counseling Given: No Alcohol Use Standard Drinks/Week Comments Yes 4 (1 standard drink = 0.6 oz pur e alcohol) Sex and Gender Information Value Date Recorded Sex Assigned at Not on file Legal Sex Male 3:08 PM EST Gender Identity Not on file Sexual Orientation Not on file Last Filed Vital Signs Vital Sign Reading Time Taken Comments Blood Pressure 169/90 02/09/2025 1:37 PM EDT Pulse 78 02/09/2025 1:29 PM EDT Temperature 36.4 C (97.6 F) 02/09/2025 1:29 PM EDT Respiratory Rate 20 10/02/2024 10:52 AM EST Oxygen Saturation 97% 02/09/2025 1:29 PM EDT Inhaled Oxygen Concentration - - Weight 73.6 kg (162 lb 4.1 oz) 02/09/2025 1:29 P M EDT Height 172.7 cm (5' 8 ) 09/12/2024 5:46 PM EDT Body Mass Index 24.67 09/12/2024 5:46 PM EDT Plan of Treatment Upcoming Encounters Date Type Department Care Team (Late st Contact Info) Description 06/11/2025 12:10 PM EDT Appointment [facility] Radiology [address] [place] [address] 06/11/2025 1:30 PM EDT Office Visit Pav CC Head, Neck & Respiratory 800 [facility], 2nd [place] [address] Jimmy Mcclure, DO [address] [address] Health Maintenance Due Date Last Done Comments [facility]-Depression Screening 1953 [facility]-Hepatitis C Screening 1953 [facility]-Medicare Annual Wellness (AWV) 1955 [facility]-Infant/Child/Adol SDOH Screenings 1953 [facility]- SDOH Screenings 1971 [facility]-Adult SDOH Screenings 1971 [facility]-Zoster Vaccines (1 of 2) 1972 CT Colonography 1998 Colonoscopy 1998 FIT-DNA 1998 FIT 1998 FOBT 1998 Sigmoidoscopy 1998 [facility]-Colorectal Cancer Screening 1998 [facility]-Abdominal Aortic Aneurysm (AAA) Screening 2018 [id number] Vaccine ( season) 2024 08/12/2023, 08/19/2021, 02/08/2021, Additional history exists [facility]-Influenza Vaccine (Season Ended) 2025 08/12/2023 [facility]-RSV Vaccine: 60+ Years or (1 - 1-dose 75+ series) 2028 [facility]-DTaP,Tdap,and Td Vaccines (2 - Td or Tdap) 12/04/2034 12/04/2024 [facility]-Pneumococcal Vaccine: 50+ Years Completed 12/04/2024 HPV Vaccines Aged Out No longer eligi ble based on patient's age to complete this topic [facility]-HIB Vaccines Aged Out No longer e ligible based on patient's age to complete this topic [facility]-Hepatitis A Vaccines Aged Out No longer eligible based on patient's age to complete this topic [facility]-IPV Vaccines Aged Out No longer e ligible based on patient's age to complete this topic [facility]-Rotavirus Vaccines Aged Out No lo nger eligible based on patient's age to complete this topic Procedures Procedure Name Priority Date/Time Associated Diagnosis Comments CT CHEST WO IV CONTRAST Routine 02/09/2025 12:51 PM EDT Lung nodule from Last 3 Months Results * CT Chest wo IV Contrast (02/09/2025 12:51 PM EDT) Anatomical Region Laterality Modality Chest Computed Tomogra phy Impressions 02/09/2025 1:11 PM EDT No evidence of recurrent or metastatic disease. CRITICAL RESULT: No. COMMUNICATION: Per this written report. Drafted by Neftaly Goldman MD on 02/09/2025 1:07 PM Final report signed by Neftaly Goldman MD on 02/09/2025 1:11 PM Narrative 02/09/2025 1:11 PM EDT CLINICAL INDICATION: Neuroendocrine tumor (NET) TECHNIQUE: Multiple CT helical images were obtained from thoracic inlet through upper abdomen without administration of IV contrast. Total DLP (Dose-Length Product): 358.20 mGy.cm. Please note: The reported value represents the total of one or more individual components during the CT acquisition on this date and at this time, and as such, the same value may appear in more than one CT report depending on the interpreting/reporting physicians. COMPARISON: August 18, 2024 FINDINGS: Mediastinum and Pleura: No mediastinal adenopathy. No pleural or pericardial effusions. Moderate coronary artery calcifications. Small hiatal hernia. Lungs: Interval wedge resection of the previously noted right upper lobe nodule, with some associated scarring, but no evidence of local recurrence. No new pulmonary nodules are seen to suggest metastatic disease. Upper Abdomen: No suspicious lesions in the partially visualized upper abdomen. Musculoskeletal: No suspicious lytic or sclerotic lesion. Procedure Note Neftaly Goldman MD - 02/09/2025 CLINICAL INDICATION: Neuroendocrine tumor (NET) TECHNIQUE: Multiple CT helical images were obtained from thoracic inlet through upperabdomen without administration of IV contrast. Total DLP (Dose-Length Product): 358.20 mGy.cm. Please note: The reportedvalue represents the total of one or more individual components during theCT acquisition on this date and at this time, and as such, the same valuemay appear in more than one CT report depending on theinterpreting/reporting physicians. COMPARISON: August 18, 2024 FINDINGS: Mediastinum and Pleura: No mediastinal adenopathy. No pleural orpericardial effusions. Moderate coronary artery calcifications. Smallhiatal hernia. Lungs: Interval wedge resection of the previously noted right upper lobenodule, with some associated scarring, but no evidence of localrecurrence. No new pulmonary nodules are seen to suggest metastaticdisease. Upper Abdomen: No suspicious lesions in the partially visualized upperabdomen. Musculoskeletal: No suspicious lytic or sclerotic lesion. IMPRESSION: No evidence of recurrent or metastatic disease. CRITICAL RESULT: No. COMMUNICATION: Per this written report. Drafted by Neftaly Goldman MD on 02/09/2025 1:07 PM Final report signed by Neftaly Goldman MD on 02/09/2025 1:11 PM Jimmy Mcclure DO IMG CT PROCEDURES Final Resul t from Last 3 Months Insurance MEDICARE ANTH Advance Directives * Full Code (Latest Code Status on File) Date Activated Date Inactivated Comments 09/12/2024 10:04 AM 09/14/2024 4:49 PM Question Answer Comments Patient has decision-making capacity? Yes Care Teams Bathhouse Attendant Relationship Specialty Start Date End Date Jolly Calvert APRN [address] [place] [address] [address] PCP - General 10/02/24
--- OUTSIDE RECORDS SUMMARY | 2025-04-18 12:39 | XMS_ITS | Encounter Summary ---
Author Organization Healthcare Address [address] [place] [address] Care Team Providers Care Surgery Attendant Name Role Phone System, Provider Not In MD Primary Care Provider Unavailable Jolly Calvert APRN Primary Care Provider +1- [phone] Encounter Details Date Type Department Care Team (Late st Contact Info) Description 04/25/2024 Orders Only External Location [address] [place] [address] Provider, External Social History Tobacco Use Types [...] EDT Appointment [facility] Radiology [address] [place] [address] 06/11/2025 1:30 PM EDT Office Visit Pav [facility] Head, Neck & Respiratory [address] [place] [address] Jimmy Mcclure, DO 800 [facility] [address] [place] [address] documented as of this encounter Procedures Procedure Name Priority Date/Time Associated Diagnosis Comments CT OUTSIDE IMAGES 04/25/2024 2:52 PM EDT documented in this encounter Results * CT OUTSIDE IMAGES (04/25/2024 2:52 PM EDT) Anatomical Region Laterality Modality Computed Tomogra phy 04/25/2024 2:52 PM EDT us External Provider IMG CT PROCEDURES Final Result documented in this encounter Visit Diagnoses Not on filedocumented in this encounter Care Teams Surgery Attendant Relationship Specialty Start Date End Date System, Provider Not In, [place] [address] PCP - General Family Medicine 08/14/24 10/01/24 Jolly Calvert APRN [facility] [place] [address] PCP - General 10/02/24 documented as of this encounter
--- OUTSIDE RECORDS SUMMARY | 2025-04-18 12:39 | XMS_ITS | Encounter Summary ---
Author Organization Healthcare Address [address] [place] [address] Care Team Providers Care Director Agricultural Services Name Role Phone Jolly Calvert JUAN Primary Care Provider +1- [phone] Encounter Details Date Type Department Care Team ([facility] st Contact Info) Description 10/31/2024 Lab Requisition P[facility] H Lab [address] [place] [address] Jimmy Mcclure, DO [address] [address] Neoplasm of uncertain behavior of trachea, bronchus and lung Social History Tobacco Use Types Packs/Day Years Used Date Smoking Tobacco: Former Cigarettes 1 33 S tarted: 1975 Passive Smoke Exposure: Never Smokeless Tobacco: Never Alcohol Use Standard Drinks/Week Comments Yes 4 (1 standard drink = 0.6 oz pur e alcohol) Sex and Gender Information Value Date Recorded Sex Assigned at Not on file Legal Sex Male 3:08 PM EST Gender Identity Not on file Sexual Orientation Not on file documented as of this encounter Functional Status * Are you deaf or do you have serious difficulty hearing? Answer Date of Assessment Author No 09/14/2024 1:47 PM EST Clara Salcedo, RN * Are you blind or do you have serious difficulty seeing, even when wearing glasses? Answer Date of Assessment Author No 09/14/2024 1:47 PM EST Clara Salcedo, RN * Do you have serious difficulty walking or climbing stairs? Answer Date of Assessment Author No 09/14/2024 1:47 PM EST Clara Salcedo, RN * Do you have serious difficulty dressing or bathing? Answer Date of Assessment Author No 09/14/2024 1:47 PM Clara Cohn RN * Because of a physical, mental, or emotional condition, do you have serious difficulty doing errandsalone such as visiting the doctor? Answer Date of Assessment Author No 09/14/2024 1:47 PM Clara Cohn RN documented as of this encounter Mental Status * Because of a physical, mental, or emotional condition, do you have serious difficulty concentrating, remembering, or making decisions? (5 years old or older) Answer Entry Date Author No 09/14/2024 1:47 PM Clara Cohn RN documented in this encounter Plan of Treatment Upcoming Encounters Date Type Department Care Team (Late st Contact Info) Description 06/11/2025 12:10 PM EDT Appointment [facility] A Radiology [address] [place] [address] 06/11/2025 1:30 PM EDT Office Visit Pav CC Head, Neck & Respiratory 800 [facility], [address]nd [place] [address] Jimmy Mcclure, 800 [facility] [address] [place] [address] documented as of this encounter Procedures Procedure Name Priority Date/Time Associated Diagnosis Comments HISTORICAL SURGICAL PATHOLOGY ADDENDUM Routine 10/30/2024 Neoplasm of uncertain behavior of trachea, bronchus and lung documented in this encounter Results * Historical Surgical Pathology Addendum (10/30/2024) Historical Case Information This case was collected on 09/12/2024 was originally reported as case [id number]. The entire surgical pathology report can be viewed as a scanned document attached to this report. 11/07/2024 1:39 PM [facility] Case Report Historical Case Addendum/Amen dment Case: [id number] Authorizing Provider: Jimmy Mcclure DO Collected: 10/30/2024 Ordering Location: [facility] Lab Received: 10/31/2024 1258 Pathologist: Lucero Bell MD Specimen: [id number] 11/07/2024 1:39 PM [facility] Addendum 11/07/2024 1:39 PM EST [facility] at 1339 EST Addendum 2 11/07/2024 1:39 PM EST [facility] at 1339 EST Addendum 3 11/07/2024 1:39 PM EST [facility] at 1339 EST Addendum 4 11/07/2024 1:39 PM EST [facility] at 1339 EST Addendum 5 11/07/2024 1:39 PM EST [facility] at 1339 EST Tissue 10/30/2024 10/31/2024 12: 58 PM EST Jimmy Mcclure DO LAB PATHOLOGY ORDERABLES Sarah bradley Result Performing Organization Address City/State/[facility] Co de Phone Number [facility] [address] [place] [address] documented in this encounter Visit Diagnoses Diagnosis Neoplasm of uncertain behavior of trachea, bronchus and lung documented in this encounter Additional Health Concerns Assessment Noted Time A fall risk assessment has been complete d for the patient 10/02/2024 10:54 AM EST A Body Mass Index follow-up plan has been documented for the patient 10/03/2024 2:18 PM EST documented as of this encounter Care Teams Director Agricultural Services Relationship Specialty Start Date End Date Jolly Calvert APRN [address] [place] [address] [address] PCP - General 10/02/24 documented as of this encounter
--- OUTSIDE RECORDS SUMMARY | 2025-04-18 12:39 | XMS_ITS | Encounter Summary ---
Author Organization Healthcare Address [address] [place] [address] Care Team Providers Care Manager Urology Name Role Phone System, Provider Not In MD Primary Care Provider Unavailable Jolly Calvert PRIME MINISTER Primary Care Provider +1- [phone] Reason for Referral * Consultation (Routine) - Authorized Specialty Diagnoses / Procedures Referred By Endy terrell Referred To Contact Nephrology Diagnoses Hyponatremia Jolly Calvert, PRIME MINISTER [address] [id number] Phone: tel: fax: [facility] [address] [facility] [address] [address] Phone: tel: fax: Referral ID Status Reason Start Date Expiration Date Visits Requested Visits Authorized [id number] Authorized Specialty Services Required 12/11/2023 06/11/2025 1 1 Encounter Details Date Type Department Care Team (Latest Contact Info) Description 12/11/2023 Community Orders Community Practice [address] [place] [address] Jolly Calvert, PRIME MINISTER [address] [id number] Hyponatremia (Primary Dx) Social History Tobacco Use Types Packs/Day Years [...] EDT Appointment [facility] Radiology [address] [place] [address] 06/11/2025 1:30 PM EDT Office Visit Pav CC Head, Neck & Respiratory 800 [facility], [address]nd [place] [address] Jimmy Mcclure, DO 800 [facility] [address] [place] [address] Scheduled Referrals Name Type Priority Associated Diagnoses Order Schedule Ambulatory referral to Nephrology Outpatient Referral Routine Hyponatremia Ordered: 12/11/2023 documented as of this encounter Visit Diagnoses Diagnosis Hyponatremia- Primary Hyposmolality and/or hyponatremia documented in this encounter Care Teams Manager Urology Relationship Specialty Start Date End Date System, Provider Not In, [address] [place] [address] PCP - General Family Medicine 08/14/24 10/01/24 Jolyl Calvert APRN 1210 [facility] [address] [address] PCP - General 10/02/24 documented as of this encounter
--- OUTSIDE RECORDS SUMMARY | 2025-04-18 12:39 | XMS_ITS | Encounter Summary ---
Author Organization Healthcare Address [address] [place] [address] Care Team Providers Care Pedodontist Name Role Phone System, Provider Not In MD Primary Care Provider Unavailable Jolly Calvert AUDIENCE COORDINATOR Primary Care Provider +1- [phone] Encounter Details Date Type Department Care Team (Late st Contact Info) Description 12/26/2023 Orders Only External Location [address] [place] [address] Jolly Calvert, AUDIENCE COORDINATOR [address] [facility] [address] [place] [address] Social History Tobacco Use Types Packs/Day Years [...] EDT Appointment [facility] Radiology [address] [place] [address] 06/11/2025 1:30 PM EDT Office Visit Pav CC Head, Neck & Respiratory 800 [facility], [address]nd [place] [address] Jimmy Mcclure, DO 800 [facility] [address] [place] [address] documented as of this encounter Procedures Procedure Name Priority Date/Time Associated Diagnosis Comments CT OUTSIDE IMAGES 12/26/2023 10:09 AM EST documented in this encounter Results * CT OUTSIDE IMAGES (12/26/2023 10:09 AM EST) Anatomical Region Laterality Modality Computed Tomogra phy 12/26/2023 10:0 9 AM EST Jolly Calvert APRN IMG CT PROCEDURES Final Re sult documented in this encounter Visit Diagnoses Not on filedocumented in this encounter Care Teams Pedodontist Relationship Specialty Start Date End Date System, Provider Not In, [place] [address] PCP - General Family Medicine 08/14/24 10/01/24 Jolly Calvert, JUAN [facility] [place] [address] PCP - General 10/02/24 documented as of this encounter
[2025-04-18 12:41] LABS: Coronavirus 19, PCR Not Detected (NotDetected); Influenza A, PCR Not Detected (NotDetected); Influenza B, PCR Not Detected (NotDetected)
--- NOTE | 2025-04-18 12:44 | XR_ITS ---
PROCEDURE INFORMATION: Exam: XR Chest Exam date and time: 04/18/2025 12:46 PM Age: 69 years old Clinical indication: Other: Rib pain TECHNIQUE: Imaging protocol: Radiologic exam of the chest. Views: 2 views. COMPARISON: CT CHEST WO CON 07/28/2024 1:14 PM FINDINGS: Lungs: No evidence of pneumonia or interstitial edema. Pleural spaces: Small right pleural effusion. Heart/Mediastinum: Unremarkable. No cardiomegaly. Bones/joints: Questionable 8 left lateral rib fracture. Correlate with point tenderness IMPRESSION: 1. No evidence of pneumonia or interstitial edema. 2. Small right pleural effusion. 3. Questionable 8 left lateral rib fracture. Correlate with point tenderness
[2025-04-18 12:55] LABS: Basophils % 0.2 % (0.1-2.0); Eosinophils % 0.3 % (0.1-12.0); Hematocrit 29.3 % (42.0-52.0); Hemoglobin 12.3 g/dL (14.1-18.0); Immature Granulocytes # 0.02 10^3uL; Immature Granulocytes % 0.3 %; Lymphocytes # 0.8 K/mm3 (0.7-4.5); Lymphocytes % 11.6 % (10-50); Mean Platelet Volume 8.9 fl (7.4-10.4); Monocytes # 0.8 K/mm3 (0.1-1.0); Monocytes % 11.9 % (1.7-9.3); Neutrophils # 4.9 K/mm3 (1.8-7.8); Neutrophils % 75.7 % (37.0-80.0); Nucleated Red Blood Cells # 0 10^3/uL; Nucleated Red Blood Cells % 0 %; Platelet Count 180 K/mm3 (142-424); Red Blood Count 3.15 M/mm3 (4.60-6.20); Red Cell Distribution Width 15.2 % (11.5-17.5); Red Cell Distribution Width-SD 43.5 fL; White Blood Count 6.5 K/mm3 (4.8-10.8)
--- NOTE | 2025-04-18 12:55 | ED_ITS ---
<Statement entered by Tomeka Goldman DO - 04/18/25 15:34> I was consulted by the ESDRAS, and we discussed the complexity of the problems being addressed. I approved the treatment and management plan for this patient's care in the emergency department, thus performing a substantive portion of the medical decision making. Patient with critical hyponatremia in the setting of recent fall, no significant medic injury noted on clinical exam. He also has fevers and infectious symptoms with normal white count. Unclear what exactly is causing his fevers, however it is felt he would benefit from admission for monitoring of his sodium. He was admitted in stable condition. Tomeka Goldman DO Discharge Plan Disposition Patient Disposition: Admitted Clinical Impressions Clinical Impression: Acute hyponatremia Discharge ED Provider: Tomeka Goldman General Adult HPI <Yelena Stein (ED), [employer] - Last Filed: 04/18/25 19:54> General Chief complaint: Upper Respiratory Infection Stated complaint: Body aches, SOB, Cough Time Seen by Provider: 04/18/25 12:36 Mode of Arrival: Ambulatory Source of Information: Patient Description of Symptoms (Recalled from ER Triage Doc. by RN): Pt presents for evaluation of fever, body aches, nonproductive cough and chest congestion x 5 days. Pt states it has been worse the last 3 days. Pt states he fell while digging a hole the other day and fell back onto his back. Pt states he does not have any pain, negative LOC/BT. Pt states he had been outside the last couple of days doing yard work. History of Present Illness HPI narrative: This is a 69-year-old male who presents to the ED today for complaint of diffuse body aches, fatigue, sleeping more often since Sunday. He had a fall on Sunday while he was trying to digging a hole. His foot got caught and he fell back. He did not hit his head and did not lose consciousness. Patient states he woke up Sunday just with pain all over. He states that it hurts to move his eyeballs. He states that his pain has worsened each day over the past week. He states that he has shortness of breath with any exertion at all. He says all his muscles hurt. He had a 101 temperature yesterday. No nausea vomiting or diarrhea. He has had no problems eating or drinking. No problems with urination. He does say that his urine has been dark. He typically drinks 5-6 beers a day but has not in 3 days. He has history of lung cancer and had it removed back in September. No heart problems he has had 2 hernia repairs. Related Data Home Medications ?Medication ?Instructions ?Recorded ?Confirmed multivit with minerals-folic 0.4 - 600 cap PO DAILY 04/18/25 acid-lycopene 0.4 mg-600 mcg capsule (Men's Daily) albuterol sulfate 90 mcg/actuation 90 mcg inhalation A S NEEDED PRN 04/18/25 04/18/25 aerosol inhaler ALLERGIES losartan 100 mg tablet 100 mg PO DAILY 04/18/2506/05 propranolol 20 mg tablet 20 mg PO DAILY 04/18/2506/05 Allergies Allergy/AdvReac Type Severity Reaction Status Date / Time No Known Allergies Allergy Verified 04/18/25 12:04 [facility] <Yelena Stein (ED), [employer] MANAGER - Last Filed: 04/18/25 19:54> [facility] Disclaimer: The information contained in this section may have been updated after the patient was seen, as this information can be updated by other users. 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) Smoking Status: Never smoker alcohol intake: never substance use type: denies use current occupational status: retired Travel in the last 8 weeks?: None Have you lived/traveled outside US in past 30 days?: No Contact w/someone who lives/traveled outside US past 30 days?: No Exposure to someone with infectious disease in past 14 days?: No Do you have a fever (greater than 100.4 F or 38 C)?: No Have you tested positive for COVID-19?: No Exposed to someone with COVID-19 in past 14 days?: No Do you have a sore throat?: No Do you have a cough?: Yes Do you have any weakness?: No Do you have any diarrhea?: No Are you experiencing any unusual bleeding?: No Do you have any muscle aches/pain?: No Do you have any abdominal pain?: No Are you experiencing loss of taste or smell?: No Other Medical History Have you received the Pneumonia Vaccine: No <Yelena Stein (ED), [employer] BUSINESS MANAGER - Last Filed: 04/18/25 19:54> ROS Obtained: Yes Systems reviewed as appropriate & no additional complaints except as documented Constitutional Constitutional: Reports as per HPI Physical Exam <Yelena Stein (ED), [employer] BUSINESS MANAGER - Last Filed: 04/18/25 19:54> General General appearance: alert and in no apparent distress Head Head exam: atraumatic and normocephalic Eye Eye exam: Present normal appearance, PERRL and EOMI ENT ENT exam: Present normal oropharynx and mucous membranes moist Neck Neck exam: Present normal inspection, full ROM and trachea midline Respiratory Respiratory exam: Present normal lung sounds bilaterally Cardiovascular Cardiovascular exam: Present regular rate, normal rhythm, normal heart sounds, +S1 and +S2 Abdominal Exam Abdominal exam: Present soft and normal bowel sounds Extremities Exam Extremities exam: Present normal inspection, full ROM and normal capillary refill Neurological Exam Neurological exam: Present alert, oriented X3 and normal gait Skin Skin exam: Present warm, dry and intact Medical Decision Making <Yelena Stein (ED), [employer] BUSINESS MANAGER - Last Filed: 04/18/25 19:54> Medical Records Screening: Per USPSTF and CDC recommendations, given the prevalence of disease in our region, it is our hospital?s policy to screen for HIV and viral Hepatitis for all patients aged 18 and over and those with ongoing risk factors. Sridhar Inquiry Pt receiving controlled substance: No Sridhar was queried for this patient: No Vital Signs: 04/18/25 12:27 04/18/25 12:32 04/18/25 13:00 Temperature 97.9 F 97.9 F Temperature Source Oral Oral Pulse Rate 82 85 Pulse Rate [Right] 82 Respiratory Rate 18 18 Blood Pressure 143/74 H Blood Pressure [Right Arm] 143/74 H Blood Pressure Mean Blood Pressure Mean [Right Arm] 97 Blood Pressure Source Automatic Cuff Blood Pressure Source [Right Arm] Automatic Cuff Blood Pressure Position Supine Blood Pressure Position [Right Arm] Sitting 02 Sat by Pulse Oximetry 100 100 95 Oxygen Delivery Method Room Air Room Air 04/18/25 13:30 04/18/25 14:00 04/18/25 14:30 Temperature Temperature Source Pulse Rate 76 76 83 Pulse Rate [Right] Respiratory Rate Blood Pressure 147/76 H 152/80 H 147/85 H Blood Pressure [Right Arm] Blood Pressure Mean Blood Pressure Mean [Right Arm] Blood Pressure Source Blood Pressure Source [Right Arm] Blood Pressure Position Blood Pressure Position [Right Arm] 02 Sat by Pulse Oximetry 95 95 95 Oxygen Delivery Method Room Air 04/18/25 15:01 04/18/25 15:30 04/18/25 15:50 Temperature Temperature Source Pulse Rate 88 81 Pulse Rate [Right] Respiratory Rate 18 Blood Pressure 184/91 H 149/86 H Blood Pressure [Right Arm] Blood Pressure Mean 99 Blood Pressure Mean [Right Arm] Blood Pressure Source Blood Pressure Source [Right Arm] Blood Pressure Position Blood Pressure Position [Right Arm] 02 Sat by Pulse Oximetry 92 L 96 Oxygen Delivery Method Room Air 04/18/25 16:26 Temperature 98.7 F Temperature Source Oral Pulse Rate 81 Pulse Rate [Right] Respiratory Rate 18 Blood Pressure 149/86 H Blood Pressure [Right Arm] Blood Pressure Mean Blood Pressure Mean [Right Arm] Blood Pressure Source Automatic Cuff Blood Pressure Source [Right Arm] Blood Pressure Position Supine Blood Pressure Position [Right Arm] 02 Sat by Pulse Oximetry Oxygen Delivery Method Room Air Lab Data Lab Results 04/18/25 12:33: SARS-CoV-2 (PCR) Not detected, Influenza A Untype (PCR) Not detected, Influenza Type B (PCR) Not detected 04/18/25 12:43: WBC 6.5, RBC 3.15 L, Hgb 12.3 L, Hct 29.3 L, MCV 93.0, MCH 39.0 H, MCHC 42.0 H*, RDW 15.2, Plt Count 180, MPV 8.9, Neut % (Auto) 75.7, Lymph % (Auto) 11.6, Emanuel % (Auto) 11.9 H, Eos % (Auto) 0.3, Baso % (Auto) 0.2, Neut # (Auto) 4.9, Lymph # (Auto) 0.8, Emanuel # (Auto) 0.8, Eos # (Auto) 0.0, Baso # (Auto) 0.0, D-Dimer 0.64 H, Sodium 117 L, Potassium 4.3, Chloride 90 L, Carbon Dioxide 21 L, Anion Gap 10.3, BUN 13, Creatinine 0.90, Estimated Creat Clear 67, Estimated GFR 83, Est GFR ( Amer) 101, Glucose 94, Lactate 0.8, Calcium 8.7, Magnesium 1.6, Total Bilirubin 1.2, AST 32, ALT 15, Alkaline Phosphatase 78, Total Creatine Kinase 81, Troponin I < 0.01, NT-Pro-B Natriuret Pep 268 H, Total Protein 7.3, Albumin 4.0, Globulin 3.3 H, Albumin/Globulin Ratio 1.2, Lipase 80, TSH 2.22, Thyroxine (T4) 6.9 04/18/25 12:45: VBG pH 7.41, VBG pCO2 33.4 L, VBG pO2 39.7, VBG HCO3 20.7 L, VBG Total CO2 21.8 L, VBG O2 Saturation 73.6 H, VBG Base Excess -3.9 L, VBG Lactic Acid 1.4 04/18/25 13:46: Urine Color Yellow, Urine Appearance Clear, Urine pH 6.5, Ur Specific [place] 1.015, Urine Protein Trace, Urine Glucose (UA) Negative, Urine Ketones 2+, Urine Blood Negative, Urine Nitrate Negative, Urine Bilirubin Negative, Urine Urobilinogen 0.2, Ur Leukocyte Esterase Negative, Urine RBC 5- 10, Urine WBC Occasional, Ur Squamous Epith Cells 5-10, Urine Bacteria 3+, Urine Mucus 4+ 04/18/25 15:27: Sodium 121 L, Potassium 4.4, Chloride 92 L, Carbon Dioxide 22, Anion Gap 11.4, BUN 13, Creatinine 0.80, Estimated Creat Clear 67, Estimated GFR 95, Est GFR ( Amer) 115, Glucose 99, Calcium 8.5, Troponin I < 0.01 04/18/25 12:43 04/18/25 15:27 Orders (Tests/Meds): ED MEDICATIONS Generic Name Dose Route Start Last Admin Trade Name Freq PRN Reason Stop Dose Admin Acetaminophen 650 mg 04/18/25 15:50 Acetaminophen 325mg Tab PO 05/18/25 15:49 Q4HP PRN Fever or Mild Pain (1-3) Enoxaparin Sodium 40 mg 04/19/25 09:00 Enoxaparin 40mg/0.4ml Syringe SUBCUT 05/19/25 08:59 DAILY TROY Sodium Chloride 1,000 mls @ 100 mls/hr 04/18/25 17:15 04/18/25 17:19 Sod Chlor 0.9% 1000ml Bag IV 05/18/25 17:14 100 mls/hr .Q10H TROY Administration Ceftriaxone Sodium 1 gm/ 50 mls @ 100 mls/hr 04/18/25 21:00 Sodium Chloride IV 04/28/25 20:59 Q24H TROY Magnesium Sulfate 2 gm in 50 mls @ 50 mls/hr 04/18/25 18:15 04/18/25 18:19 Magnesium Sulfate 2gm/50ml Premix IV 04/18/25 20:14 50 mls/hr Q1H TROY Administration Ondansetron HCl 4 mg 04/18/25 15:50 Ondansetron 4mg/2ml Vial IV 05/18/25 15:49 Q6HP PRN Nausea Sodium Chloride 10 ml 04/18/25 17:13 Sodium Chloride 0.9% 10ml Flush Syringe IV 05/18/25 17:12 NEEDED PRN Maintain IV Site Discontinued Medications Generic Name Dose Route Start Last Admin Trade Name Freq PRN Reason Stop Dose Admin Sodium Chloride 1,000 mls @ 999 mls/hr 04/18/25 12:44 04/18/25 13:03 Sod Chlor 0.9% 1000ml Bag IV 04/18/25 13:44 999 mls/hr .Q1H1M ONE Administration Ceftriaxone Sodium 1 gm/ 50 mls @ 100 mls/hr 04/18/25 20:00 Sodium Chloride IV 04/28/25 19:59 Q24H TROY Ketorolac Tromethamine 30 mg 04/18/25 12:50 04/18/25 13:03 Ketorolac 30mg/Ml Vial IV 04/18/25 12:51 30 mg ONCE ONE Administration Methylprednisolone Sodium Succinate 125 mg 04/18/25 12:44 04/18/25 13:03 Methylprednisolone Sod Succ 125mg Vial IV 04/18/25 12:45 125 mg ONCE ONE Administration ORDERS Category Date Time Status CT cervical spine wo con Stat Cat Scan 04/18/25 13:[address] head/brain wo con Stat Cat Scan 04/18/25 13:15 Completed Chest XR 2 view (NOT portable) [XR chest 2V] Stat Exams 04/18/25 12:44 Completed BNP [NT Pro Brain Natriuretic Pep.] Stat Lab 04/18/25 12:43 Completed CBC [Complete Blood Count Auto Diff] Stat Lab 04/18/25 12:43 Completed Comprehensive Metabolic Panel Stat Lab 04/18/25 12:43 Completed Creatine Kinase Stat Lab 04/18/25 12:43 Completed D-Dimer Stat Lab 04/18/25 12:43 Completed Full Resp Panel w/COVID (H) Routine Lab 04/18/25 17:15 Completed Lactic Acid Stat Lab 04/18/25 12:43 Completed Lipase Stat Lab 04/18/25 12:43 Completed Magnesium Stat Lab 04/18/25 12:43 Completed Rapid PCR Covid and Flu A/B Stat Lab 04/18/25 12:33 Completed T4 (Thyroxine) Stat Lab 04/18/25 12:43 Completed TSH [Thyroid Stimulating Hormone] Stat Lab 04/18/25 12:43 Completed Trop I [Troponin I] Stat Lab 04/18/25 12:43 Completed Troponin I Q3H Lab 04/18/25 15:27 Completed Troponin I Q3H Lab 04/18/25 18:55 Ordered Urinalysis and Microscopic Stat Lab 04/18/25 13:46 Completed Urine Culture Stat Micro 04/18/25 13:46 Received Venous Blood Gas Stat RT 04/18/25 12:45 Completed Medical Decision Narrative: patient is a 69-year-old male presenting to the emergency department for evaluation of diffuse body aches, fatigue and increased sleeping. He has had a fall on Sunday while doing yard work. He did not lose consciousness and he did not hit his head. Patient is hemodynamically stable and nontoxic-appearing upon arrival, afebrile. Differential diagnosis includes rhabdo, viral illness, pneumonia, among others. Workup will be conducted with hematologic labs, chest x-ray, provocative tests. Initial inventions include crystalloid bolus, analgesics. Initial workup reviewed by me sodium was 117, chloride 90, BUN and creatinine were 13.90. CK was 91. BNP was 268. Imaging informally interpreted by me and remarkable for no pneumonia. Formal imaging read by radiology. Please see radiology report for full details. Patient will be admitted to hospital medicine for hyponatremia. Patient aware and hospital accepted. Patient safe for mission. <Tomeka Goldman, DO - Last Filed: 04/18/25 14:11> Vital Signs: 04/18/25 12:27 04/18/25 12:32 04/18/25 13:00 Temperature 97.9 F 97.9 F Temperature Source Oral Oral Pulse Rate 82 85 Pulse Rate [Right] 82 Respiratory Rate 18 18 Blood Pressure 143/74 H Blood Pressure [Right Arm] 143/74 H Blood Pressure Mean Blood Pressure Mean [Right Arm] 97 Blood Pressure Source Automatic Cuff Blood Pressure Source [Right Arm] Automatic Cuff Blood Pressure Position Supine Blood Pressure Position [Right Arm] Sitting 02 Sat by Pulse Oximetry 100 100 95 Oxygen Delivery Method Room Air Room Air 04/18/25 13:30 04/18/25 14:00 04/18/25 14:30 Temperature Temperature Source Pulse Rate 76 76 83 Pulse Rate [Right] Respiratory Rate Blood Pressure 147/76 H 152/80 H 147/85 H Blood Pressure [Right Arm] Blood Pressure Mean Blood Pressure Mean [Right Arm] Blood Pressure Source Blood Pressure Source [Right Arm] Blood Pressure Position Blood Pressure Position [Right Arm] 02 Sat by Pulse Oximetry 95 95 95 Oxygen Delivery Method Room Air 04/18/25 15:01 04/18/25 15:30 04/18/25 15:50 Temperature Temperature Source Pulse Rate 88 81 Pulse Rate [Right] Respiratory Rate 18 Blood Pressure 184/91 H 149/86 H Blood Pressure [Right Arm] Blood Pressure Mean 99 Blood Pressure Mean [Right Arm] Blood Pressure Source Blood Pressure Source [Right Arm] Blood Pressure Position Blood Pressure Position [Right Arm] 02 Sat by Pulse Oximetry 92 L 96 Oxygen Delivery Method Room Air 04/18/25 16:26 Temperature 98.7 F Temperature Source Oral Pulse Rate 81 Pulse Rate [Right] Respiratory Rate 18 Blood Pressure 149/86 H Blood Pressure [Right Arm] Blood Pressure Mean Blood Pressure Mean [Right Arm] Blood Pressure Source Automatic Cuff Blood Pressure Source [Right Arm] Blood Pressure Position Supine Blood Pressure Position [Right Arm] 02 Sat by Pulse Oximetry Oxygen Delivery Method Room Air Lab Data Lab Results 04/18/25 12:33: SARS-CoV-2 (PCR) Not detected, Influenza A Untype (PCR) Not detected, Influenza Type B (PCR) Not detected 04/18/25 12:43: WBC 6.5, RBC 3.15 L, Hgb 12.3 L, Hct 29.3 L, MCV 93.0, MCH 39.0 H, MCHC 42.0 H*, RDW 15.2, Plt Count 180, MPV 8.9, Neut % (Auto) 75.7, Lymph % (Auto) 11.6, Emanuel % (Auto) 11.9 H, Eos % (Auto) 0.3, Baso % (Auto) 0.2, Neut # (Auto) 4.9, Lymph # (Auto) 0.8, Emanuel # (Auto) 0.8, Eos # (Auto) 0.0, Baso # (Auto) 0.0, D-Dimer 0.64 H, Sodium 117 L, Potassium 4.3, Chloride 90 L, Carbon Dioxide 21 L, Anion Gap 10.3, BUN 13, Creatinine 0.90, Estimated Creat Clear 67, Estimated GFR 83, Est GFR ( Amer) 101, Glucose 94, Lactate 0.8, Calcium 8.7, Magnesium 1.6, Total Bilirubin 1.2, AST 32, ALT 15, Alkaline Phosphatase 78, Total Creatine Kinase 81, Troponin I < 0.01, NT-Pro-B Natriuret Pep 268 H, Total Protein 7.3, Albumin 4.0, Globulin 3.3 H, Albumin/Globulin Ratio 1.2, Lipase 80, TSH 2.22, Thyroxine (T4) 6.9 04/18/25 12:45: VBG pH 7.41, VBG pCO2 33.4 L, VBG pO2 39.7, VBG HCO3 20.7 L, VBG Total CO2 21.8 L, VBG O2 Saturation 73.6 H, VBG Base Excess -3.9 L, VBG Lactic Acid 1.4 04/18/25 13:46: Urine Color Yellow, Urine Appearance Clear, Urine pH 6.5, Ur Specific [place] 1.015, Urine Protein Trace, Urine Glucose (UA) Negative, Urine Ketones 2+, Urine Blood Negative, Urine Nitrate Negative, Urine Bilirubin Negative, Urine Urobilinogen 0.2, Ur Leukocyte Esterase Negative, Urine RBC 5- 10, Urine WBC Occasional, Ur Squamous Epith Cells 5-10, Urine Bacteria 3+, Urine Mucus 4+ 04/18/25 15:27: Sodium 121 L, Potassium 4.4, Chloride 92 L, Carbon Dioxide 22, Anion Gap 11.4, BUN 13, Creatinine 0.80, Estimated Creat Clear 67, Estimated GFR 95, Est GFR ( Amer) 115, Glucose 99, Calcium 8.5, Troponin I < 0.01 Orders (Tests/Meds): ED MEDICATIONS Generic Name Dose Route Start Last Admin Trade Name Freq PRN Reason Stop Dose Admin Acetaminophen 650 mg 04/18/25 15:50 Acetaminophen 325mg Tab PO 05/18/25 15:49 Q4HP PRN Fever or Mild Pain (1-3) Enoxaparin Sodium 40 mg 04/19/25 09:00 Enoxaparin 40mg/0.4ml Syringe SUBCUT 05/19/25 08:59 DAILY TROY Sodium Chloride 1,000 mls @ 100 mls/hr 04/18/25 17:15 04/18/25 17:19 Sod Chlor 0.9% 1000ml Bag IV 05/18/25 17:14 100 mls/hr .Q10H TROY Administration Ceftriaxone Sodium 1 gm/ 50 mls @ 100 mls/hr 04/18/25 21:00 Sodium Chloride IV 04/28/25 20:59 Q24H TROY Magnesium Sulfate 2 gm in 50 mls @ 50 mls/hr 04/18/25 18:15 04/18/25 18:19 Magnesium Sulfate 2gm/50ml Premix IV 04/18/25 20:14 50 mls/hr Q1H TROY Administration Ondansetron HCl 4 mg 04/18/25 15:50 Ondansetron 4mg/2ml Vial IV 05/18/25 15:49 Q6HP PRN Nausea Sodium Chloride 10 ml 04/18/25 17:13 Sodium Chloride 0.9% 10ml Flush Syringe IV 05/18/25 17:12 NEEDED PRN Maintain IV Site Discontinued Medications Generic Name Dose Route Start Last Admin Trade Name Freq PRN Reason Stop Dose Admin Sodium Chloride 1,000 mls @ 999 mls/hr 04/18/25 12:44 04/18/25 13:03 Sod Chlor 0.9% 1000ml Bag IV 04/18/25 13:44 999 mls/hr .Q1H1M ONE Administration Ceftriaxone Sodium 1 gm/ 50 mls @ 100 mls/hr 04/18/25 20:00 Sodium Chloride IV 04/28/25 19:59 Q24H [facility] Ketorolac Tromethamine 30 mg 04/18/25 12:50 04/18/25 13:03 Ketorolac 30mg/Ml Vial IV 04/18/25 12:51 30 mg ONCE ONE Administration Methylprednisolone Sodium Succinate 125 mg 04/18/25 12:44 04/18/25 13:03 Methylprednisolone Sod Succ 125mg Vial IV 04/18/25 12:45 125 mg ONCE ONE Administration ORDERS Category Date Time Status CT cervical spine wo con Stat Cat Scan 04/18/25 13:[address] head/brain wo con Stat Cat Scan 04/18/25 13:15 Completed Chest XR 2 view (NOT portable) [XR chest 2V] Stat Exams 04/18/25 12:44 Completed BNP [NT Pro Brain Natriuretic Pep.] Stat Lab 04/18/25 12:43 Completed CBC [Complete Blood Count Auto Diff] Stat Lab 04/18/25 12:43 Completed Comprehensive Metabolic Panel Stat Lab 04/18/25 12:43 Completed Creatine Kinase Stat Lab 04/18/25 12:43 Completed D-Dimer Stat Lab 04/18/25 12:43 Completed Full Resp Panel w/COVID (H) Routine Lab 04/18/25 17:15 Completed Lactic Acid Stat Lab 04/18/25 12:43 Completed Lipase Stat Lab 04/18/25 12:43 Completed Magnesium Stat Lab 04/18/25 12:43 Completed Rapid PCR Covid and Flu A/B Stat Lab 04/18/25 12:33 Completed T4 (Thyroxine) Stat Lab 04/18/25 12:43 Completed TSH [Thyroid Stimulating Hormone] Stat Lab 04/18/25 12:43 Completed Trop I [Troponin I] Stat Lab 04/18/25 12:43 Completed Troponin I Q3H Lab 04/18/25 15:27 Completed Troponin I Q3H Lab 04/18/25 18:55 Ordered Urinalysis and Microscopic Stat Lab 04/18/25 13:46 Completed Urine Culture Stat Micro 04/18/25 13:46 Received Venous Blood Gas Stat RT 04/18/25 12:45 Completed ECG Data Tracing #1: I reviewed this ECG and interpreted as documented below: Normal sinus rhythm with a ventricular rate of [address] changes concerning for ischemia. Normal intervals ECG initial impression date: 04/18/25 ECG initial impression time: 12:52 Critical Care <Yelena Stein (ED), [employer]NAGER - Last Filed: 04/18/25 19:54> Critical Care Time Critical Care Time: No
[2025-04-18 12:59] LABS: Lactate Venous 1.4 mmol/L (0.4-2.0); VBG Base Excess -3.9 mmol/L (-2.4-2.3); VBG HCO3 20.7 mmol/L (23-30); VBG Oxygen Saturation 73.6 % (50-70); VBG PCO2 33.4 mmol/L (35-51); VBG PH 7.41 mmol/L (7.31-7.41); VBG PO2 39.7 mmol/L (28-40); VBG Total CO2 21.8 mmol/L (23-27)
[2025-04-18 13:03] LABS: Alanine Aminotransferase 15 U/L (12-78); Albumin/Globulin Ratio 1.2 (1.1-1.8); Alkaline Phosphatase 78 U/L (38-126); Anion Gap 10.3 mEq/L (5-15); Aspartate Amino Transferase 32 U/L (17-59); Bilirubin,Total 1.2 mg/dl (0.2-1.3); Blood Urea Nitrogen 13 mg/dl (9-20); Calcium 8.7 mg/dl (8.4-10.2); Carbon Dioxide 21 mmol/L (22.0-30.0); Chloride 90 mmol/L (98-107); Creatine Kinase 81 U/L (55-170); Creatinine Clearance Estimated 67 mL/min (50-200); Estimated Glomerular Filt Rate 83 ml/min (>60); GFR (African American) 101 ML/MIN (>60); Globulin 3.3 g/dL (1.3-3.2); Glucose 94 mg/dl (74-100); Lipase 80 U/L (23-300); Magnesium 1.6 mg/dl (1.6-2.3); Potassium 4.3 mmoL/L (3.5-5.1); Sodium 117 mmol/L (136-145); Total Protein,Serum 7.3 g/dl (6.3-8.2)
[2025-04-18] MEDS: 0.9 % SODIUM CHLORIDE 1000ML 1,000 ML 999 ML IV (13:03)
[2025-04-18] MEDS: KETOROLAC 30MG/ML VIAL 30 MG IV (13:03)
[2025-04-18] MEDS: METHYLPREDNISOLONE SOD SUCC 125MG VIAL 125 MG IV (13:03)
[2025-04-18 13:04] LABS: Lactic Acid 0.8 mmol/L (0.7-2.1)
[2025-04-18 13:07] LABS: D-Dimer 0.64 ug/mL (0.0-0.5)
--- NOTE | 2025-04-18 13:10 | ECG_ITS ---
APPROVED REPORT Exam: Resting ECG HR:77 bpm ECG Measurements Heart Rate 77 AXES MS 172 P 67 QRSd 100 QRS 62 QT 383 T 54 QTc 415 Conclusion SINUS RHYTHM no stemi Electronically signed by : RACHID MENON, 04/19/2025 07:14:40
--- NOTE | 2025-04-18 13:15 | CT_ITS ---
PROCEDURE INFORMATION: Exam: CT Cervical Spine Without Contrast Exam date and time: 04/18/2025 1:42 PM Age: 69 years old Clinical indication: Neck pain; Additional info: Neck pain, fall TECHNIQUE: Imaging protocol: Computed tomography of the cervical spine without contrast. Radiation optimization: All CT scans at this facility use at least one of these dose optimization techniques: automated exposure control; mA and/or kV adjustment per patient size (includes targeted exams where dose is matched to clinical indication); or iterative reconstruction. COMPARISON: PT P.E.T./CT SKULL BASE TO MID-THIGH 01/17/2024 11:29 AM FINDINGS: Bones: Vertebral alignment is maintained. There is preservation of cervical vertebral body heights. Facet joints are aligned. Odontoid process is intact. Chronic T1 superior endplate deformity is again noted. Atlantoaxial interval maintained. No acute fracture. Uncovertebral and facet arthropathy result in varying degrees of neural foraminal narrowing at multiple levels. Paranasal sinuses: Scattered mucosal thickening throughout the paranasal sinuses. Lungs: Lung apices are normal. Soft tissues: Prevertebral and paravertebral soft tissues are maintained IMPRESSION: No acute fracture. No traumatic subluxation.
--- NOTE | 2025-04-18 13:15 | CT_ITS ---
PROCEDURE INFORMATION: Exam: CT Head Without Contrast Exam date and time: 04/18/2025 1:40 PM Age: 69 years old Clinical indication: Injury or trauma; Fall; Blunt trauma (contusions or hematomas); Additional info: Low na/fall TECHNIQUE: Imaging protocol: Computed tomography of the head without contrast. Radiation optimization: All CT scans at this facility use at least one of these dose optimization techniques: automated exposure control; mA and/or kV adjustment per patient size (includes targeted exams where dose is matched to clinical indication); or iterative reconstruction. COMPARISON: CT - P.E.T./CT SKULL BASE TO MID-THIGH 01/17/2024 11:29 AM FINDINGS: Brain: There is no evidence of acute intracranial hemorrhage, extra-axial collection or locoregional mass effect. There are patchy and coalescent hypodensities in the periventricular and subcortical white matter. The appearance is nonspecific, but most likely represents chronic small vessel disease in a person of this age Cerebral ventricles: There is diffuse prominence of the ventricles and CSF containing spaces which can be attributed to age-related volume loss. No hydrocephalus or midline shift identified. Pituitary gland and sella: Sellar/parasellar structures, craniocervical junction and orbits are unremarkable Paranasal sinuses: Scattered mucosal thickening throughout the paranasal sinuses. Mastoid air cells: Visualized mastoid air cells are well aerated. Bones: No calvarial fracture Soft tissues: Unremarkable. IMPRESSION: No acute intracranial abnormality. No calvarial fracture.
[2025-04-18 13:17] LABS: NT Pro Brain Natriuretic Pep. 268 pg/mL (0-125)
[2025-04-18 13:21] LABS: Troponin I < 0.01 ng/ml (0.00-0.034)
[2025-04-18 13:22] LABS: T4 (Thyroxine) 6.9 ug/dl (5.53-11.0)
[2025-04-18 13:35] LABS: Thyroid Stimulating Hormone 2.22 uIU/mL (0.465-4.68)
[2025-04-18 13:54] LABS: Microscopic, Urine URINE MICROSCOPIC (MICROSCOPIC)
[2025-04-18 14:26] LABS: Appearance,Urine CLEAR (Clear); Blood, Urine Negative (Negative); Color,Urine YELLOW (Yellow); Glucose,Urine (UA) Negative (Negative); Ketones,Urine 2+ (Negative); Leukocyte Esterase,Urine Negative (Negative); Nitrate,Urine Negative (Negative); PH,Urine 6.5 (5.0-8.5); Protein,Urine TRACE (Negative); Specific Gravity, Urine 1.015 (1.005-1.030); Urobilinogen,Urine 0.2 EU/dl (0.2)
[2025-04-18 14:37] LABS: Bilirubin,Urine Negative (Negative)
[2025-04-18 14:54] LABS: WBC,Urine Occasional #/hpf (0-3)
[2025-04-18 14:55] LABS: Bacteria,Urine 3+ /lpf; Mucus,Urine 4+ /lpf
--- NOTE | 2025-04-18 15:30 | EXP.HP ---
History of Present Illness *Admission Date: 04/18/25 *Reason for visit:: Weakness, body aches, fever *History of present illness: Ruben Grande is a 69-year-old male with a medical history significant for hypertension who presents with several day onset of weakness, body aches, and a temperature of 100 Fahrenheit at home. He states over the past few days he has also not been eating much, but has been drinking water. Endorses slight shortness of breath, but denies chest pain, abdominal pain, urinary symptoms, constipation/diarrhea. Denies recent sick contacts, travel history. Workup in the ED significant for sodium 117 which improved to 1L NS bolus after admission. Case discussed with ED provider and she was made to admit patient for hyponatremia. [facility] Disclaimer: The information contained in this section may have been updated after the patient was seen, as this information can be updated by other users. Medical History , HEALTH ADVISOR) Nodule of right lung Surgical History , HEALTH ADVISOR) History of colonoscopy History of surgery on upper extremity History of hernia surgery Family History , HEALTH ADVISOR) Diabetes Hypertension Social History , HEALTH ADVISOR) Smoking Status: Never smoker alcohol intake: never substance use type: denies use current occupational status: retired Travel in the last 8 weeks?: None Have you lived/traveled outside US in past 30 days?: No Contact w/someone who lives/traveled outside US past 30 days?: No Exposure to someone with infectious disease in past 14 days?: No Do you have a fever (greater than 100.4 F or 38 C)?: No Have you tested positive for COVID-19?: No Exposed to someone with COVID-19 in past 14 days?: No Do you have a sore throat?: No Do you have a cough?: Yes Do you have any weakness?: No Do you have any diarrhea?: No Are you experiencing any unusual bleeding?: No Do you have any muscle aches/pain?: No Do you have any abdominal pain?: No Are you experiencing loss of taste or smell?: No Other Medical History Have you received the Pneumonia Vaccine: No Meds Home Medications and Allergies Home Medications ?Medication ?Instructions ?Recorded ?Confirmed ?Type multivit with minerals-folic 0.4 - 600 cap PO DAILY 03/31/24 04/18/25 History acid-lycopene 0.4 mg-600 mcg capsule (Men's Daily) albuterol sulfate 90 mcg/actuation 90 mcg inhalation NEEDED PRN 04/18/25 04/18/25 History aerosol inhaler ALLERGIES losartan 100 mg tablet 100 mg PO DAILY 04/18/25 04/18/25 History propranolol 20 mg tablet 20 mg PO DAILY 04/18/25 04/18/25 History New Prescriptions to Start Prescriptions: Allergies Allergy/AdvReac Type Severity Reaction Status Date / Time No Known Allergies Allergy Verified 04/18/25 12:04 Exam Data for Last 24 hours Vital signs and Labs for Last 24 Hours: Temp Pulse Resp BP Pulse Ox O2 Del Method 97.9 F 88 18 184/91 H 92 L Room Air 04/18/25 12:32 04/18/25 15:01 04/18/25 12:32 04/18/25 15:01 04/18/25 15:01 04/18/25 14:00 Laboratory Results - last 24 hr 04/18/25 12:33: SARS-CoV-2 (PCR) Not detected, Influenza A Untype (PCR) Not detected, Influenza Type B (PCR) Not detected 04/18/25 12:43: WBC 6.5, RBC 3.15 L, Hgb 12.3 L, Hct 29.3 L, MCV 93.0, MCH 39.0 H, MCHC 42.0 H*, RDW 15.2, Plt Count 180, MPV 8.9, Neut % (Auto) 75.7, Lymph % (Auto) 11.6, [place] % (Auto) 11.9 H, Eos % (Auto) 0.3, Baso % (Auto) 0.2, Neut # (Auto) 4.9, Lymph # (Auto) 0.8, [place] # (Auto) 0.8, Eos # (Auto) 0.0, Baso # (Auto) 0.0, D-Dimer 0.64 H, Sodium 117 L, Potassium 4.3, Chloride 90 L, Carbon Dioxide 21 L, Anion Gap 10.3, BUN 13, Creatinine 0.90, Estimated Creat Clear 67, Estimated GFR 83, Est GFR ( Amer) 101, Glucose 94, Lactate 0.8, Calcium 8.7, Magnesium 1.6, Total Bilirubin 1.2, AST 32, ALT 15, Alkaline Phosphatase 78, Total Creatine Kinase 81, Troponin I < 0.01, NT-Pro-B Natriuret Pep 268 H, Total Protein 7.3, Albumin 4.0, Globulin 3.3 H, Albumin/Globulin Ratio 1.2, Lipase 80, TSH 2.22, Thyroxine (T4) 6.9 04/18/25 12:45: VBG pH 7.41, VBG pCO2 33.4 L, VBG pO2 39.7, VBG HCO3 20.7 L, VBG Total CO2 21.8 L, VBG O2 Saturation 73.6 H, VBG Base Excess -3.9 L, VBG Lactic Acid 1.4 04/18/25 13:46: Urine Color Yellow, Urine Appearance Clear, Urine pH 6.5, Ur Specific [place] 1.015, Urine Protein Trace, Urine Glucose (UA) Negative, Urine Ketones 2+, Urine Blood Negative, Urine Nitrate Negative, Urine Bilirubin Negative, Urine Urobilinogen 0.2, Ur Leukocyte Esterase Negative, Urine RBC 5-10, Urine WBC Occasional, Ur Squamous Epith Cells 5-10, Urine Bacteria 3+, Urine Mucus 4+ I & O for Last 24 hours: Intake & Output 04/15/25 04/16/25 04/17/25 04/18/25 23:59 23:59 23:59 23:59 Weight 70.307 kg Constitutional Constitutional: no acute distress *Routine HEENT Exam Head: Present normocephalic Eye: Present EOMI and PERRL ENT: Present mucous membranes moist *Routine Neck Exam Neck: Present supple; Absent lymphadenopathy *Routine Respiratory Exam Respiratory: Present CTA bilaterally *Routine Cardiovascular Exam Cardiovascular: Present RRR *Routine Abdominal Exam Abdominal: Present soft and normoactive bowel sounds; Absent tenderness *Routine Rectal Exam Rectal:: deferred *Routine Genitalia Exam Genitalia:: deferred *Routine Extremities Exam Extremities: Absent cyanosis, clubbing or edema *Routine Skin Exam Skin: Present warm; Absent rash *Routine Neurological Exam Neurological: Present alert and oriented X3 Assessment and Plan *Assessment and plan (1) Acute hyponatremia: Status: Acute Category: Medical Code(s): E87.1 - Hypo-osmolality and hyponatremia Plan Ruben Grande is a 69-year-old male with a medical history significant for hypertension who presents with several day onset of weakness, body aches, and a temperature of 100 Fahrenheit at home. He states over the past few days he has also not been eating much, but has been drinking water. Endorses slight shortness of breath, but denies chest pain, abdominal pain, urinary symptoms, constipation/diarrhea. Denies recent sick contacts, travel history. Workup in the ED significant for sodium 117 which improved to 121 after 1L NS bolus after admission. Case discussed with ED provider and she was made to admit patient for hyponatremia. #Hyponatremia #Decreased appetite #Suspected acute viral syndrome ? Presents with flulike symptoms including body aches, weakness, temperature 100. At home. ? Initial sodium 117, improved to 121 after 1L NS fluid resuscitation. Suspect hypovolemic hyponatremia. ? Low suspicion for SIADH. No medications to induce hyponatremia. Likely from poor appetite. ? Follow-up full respiratory panel. ? Continue NS at 100 mL/h, follow-up BMP at 9 PM. ? Max sodium correction 8-10 mEq per 24 hours. ? Continuous cardiac telemetry. #Possible UTI ? UA positive for bacteriuria, hematuria. ? Started ceftriaxone day 1. #Hypertension ? Continue home losartan. Full code DVT prophylaxis: Lovenox 40 mg
[2025-04-18 16:04] LABS: Troponin I < 0.01 ng/ml (0.00-0.034)
--- NOTE | 2025-04-18 16:06 | PC.NURSE ---
report called to inga on second floor
[2025-04-18 16:16] LABS: Anion Gap 11.4 mEq/L (5-15); Blood Urea Nitrogen 13 mg/dl (9-20); Calcium 8.5 mg/dl (8.4-10.2); Carbon Dioxide 22 mmol/L (22.0-30.0); Chloride 92 mmol/L (98-107); Creatinine Clearance Estimated 67 mL/min (50-200); Estimated Glomerular Filt Rate 95 ml/min (>60); GFR (African American) 115 ML/MIN (>60); Glucose 99 mg/dl (74-100); Potassium 4.4 mmoL/L (3.5-5.1); Sodium 121 mmol/L (136-145)
--- NOTE | 2025-04-18 16:16 | PC.NURSE ---
arrived by w/c from ED
[2025-04-18 17:18] LABS: Adenovirus,PCR Not Detected (NotDetected); Bordetella Pertussis Not Detected (NotDetected); Chlamydophila Pneumoniae, PCR Not Detected (NotDetected); Coronavirus 19, PCR Not Detected (NotDetected); Coronavirus 229E Not Detected (NotDetected); Coronavirus NL63 Not Detected (NotDetected); Coronavirus OC43 Not Detected (NotDetected); Coronovirus HKU1,PCR Not Detected (NotDetected); Influenza A, PCR Not Detected (NotDetected); Influenza AH1, 2009 Not Detected (NotDetected); Influenza AH1, PCR Not Detected (NotDetected); Influenza AH3,PCR Not Detected (NotDetected); Influenza B, PCR Not Detected (NotDetected); Mycoplasma Pneumoniae, PCR Not Detected (NotDetected); Parainfluenza 1, PCR Not Detected (NotDetected); Parainfluenza 2, PCR Not Detected (NotDetected); Parainfluenza 3, PCR Not Detected (NotDetected); Parainfluenza 4, PCR Not Detected (NotDetected); Respiratory Syncytial Virus Not Detected (NotDetected); Rhinovirus/Enterovirus Not Detected (NotDetected)
[2025-04-18] MEDS: 0.9 % SODIUM CHLORIDE 1000ML 1,000 ML 100 ML IV (17:19)
[2025-04-18] MEDS: MAGNESIUM SULFATE IN WATER 2 GM/50 ML PIGGYBACK IV ×2 (18:19→20:19)
--- NOTE | 2025-04-18 18:33 | PC.NURSE ---
pt resting supine in bed. mag replaced per protocol. full resp panel collected and sent to lab. NS infusing @100ml/hr per order. no complaints of pain. no needs at this time. call light within reach.
[2025-04-18 19:08] LABS: Human Metapneumovirus Detected (NotDetected)
[2025-04-18] MEDS: CEFTRIAXONE 1 GM 1 GM in 0.9 % SODIUM CHLORIDE 50 ML IV (21:27)
[2025-04-18 22:53] LABS: Blood Urea Nitrogen 12 mg/dl (9-20); Calcium 8.4 mg/dl (8.4-10.2); Carbon Dioxide 21 mmol/L (22.0-30.0); Chloride 96 mmol/L (98-107); Creatinine Clearance Estimated 70 mL/min (50-200); Estimated Glomerular Filt Rate 133 ml/min (>60); GFR (African American) 161 ML/MIN (>60); Glucose 146 mg/dl (74-100); Sodium 124 mmol/L (136-145)
[2025-04-18 23:05] LABS: Troponin I < 0.01 ng/ml (0.00-0.034)
[2025-04-19] VITALS: BP 120/64; PULSE 82; RESP 16; TEMP 36.3; O2SAT 94
--- NOTE | 2025-04-19 03:45 | PC.NURSE ---
Patient is pleasantly alert and oriented x4. He was observed to have eyes closed, respirations even and unlabored on room air, and no apparent distress throughout the majority of the night. Upon assessment, the patient had complaints of body aches (refused Tylenol upon offer, has not requested any other interventions thus far) and a productive cough. Scheduled medications were administered per MAR. Electrolyte replacement protocol. Normal saline continues to infuse at 100 mL/hr. Upon auscultation of his lungs, sounds were diminished. Heart and bowel sounds within normal findings. Patient ambulates independently in his room/to the bathroom with standby assistance as needed. At this time, the patient is resting in bed without any further complaints. No new needs thus far. Call light within reach. Contact/droplet precautions for Human Metapneumovirus (PCR).
[2025-04-19 04:00] VITALS: BP 140/73; PULSE 87; RESP 16; TEMP 36.4; O2SAT 98; BMI 24.0
[2025-04-19 07:19] LABS: Hemoglobin 11.7 g/dL (14.1-18.0); Immature Granulocytes # 0.03 10^3uL; Immature Granulocytes % 0.8 %; Lymphocytes # 0.5 K/mm3 (0.7-4.5); Lymphocytes % 13.3 % (10-50); Mean Corpuscular Volume 94.4 fl (80-94); Mean Platelet Volume 8.9 fl (7.4-10.4); Monocytes # 0.5 K/mm3 (0.1-1.0); Monocytes % 13.6 % (1.7-9.3); Neutrophils # 2.7 K/mm3 (1.8-7.8); Neutrophils % 72.3 % (37.0-80.0); Nucleated Red Blood Cells # 0 10^3/uL; Nucleated Red Blood Cells % 0 %; Platelet Count 182 K/mm3 (142-424); Red Blood Count 2.86 M/mm3 (4.60-6.20); Red Cell Distribution Width 14.7 % (11.5-17.5); Red Cell Distribution Width-SD 43.7 fL; White Blood Count 3.7 K/mm3 (4.8-10.8)
[2025-04-19 07:36] LABS: Albumin Level 3.5 g/dl (3.5-5.0); Chloride 99 mmol/L (98-107); Mean Corpuscular HGB Conc 43.3 g/dL (31.8-35.4); Mean Corpuscular Hemoglobin 40.9 pg (27.0-31.2); Potassium 4.3 mmoL/L (3.5-5.1); Sodium 125 mmol/L (136-145)
[2025-04-19 07:37] LABS: MANUAL DIFFERENTIAL MANUAL DIFFERENTIAL (MANUAL DIFF)
[2025-04-19 07:39] LABS: Alanine Aminotransferase 12 U/L (12-78); Albumin/Globulin Ratio 1.2 (1.1-1.8); Alkaline Phosphatase 71 U/L (38-126); Anion Gap 7.3 mEq/L (5-15); Aspartate Amino Transferase 28 U/L (17-59); Bilirubin,Total 0.5 mg/dl (0.2-1.3); Blood Urea Nitrogen 12 mg/dl (9-20); Calcium 7.8 mg/dl (8.4-10.2); Carbon Dioxide 23 mmol/L (22.0-30.0); Creatinine Clearance Estimated 69 mL/min (50-200); Estimated Glomerular Filt Rate 133 ml/min (>60); GFR (African American) 161 ML/MIN (>60); Globulin 2.9 g/dL (1.3-3.2); Glucose 127 mg/dl (74-100); Magnesium 2.4 mg/dl (1.6-2.3); Total Protein,Serum 6.4 g/dl (6.3-8.2)
[2025-04-19 08:00] VITALS: BP 137/65; PULSE 84; RESP 20; TEMP 36.4; O2SAT 96
[2025-04-19] MEDS: ENOXAPARIN 40MG/0.4ML SYRINGE 40 MG SUBCUT (09:46)
--- NOTE | 2025-04-19 10:23 | P.DS_ITS ---
General Admission date:: 04/18/25 HPI HPI HPI: Ruben Grande is a 69-year-old male with a medical history significant for hypertension who presents with several day onset of weakness, body aches, and a temperature of 100 Fahrenheit at home. He states over the past few days he has also not been eating much, but has been drinking water. Endorses slight shortness of breath, but denies chest pain, abdominal pain, urinary symptoms, constipation/diarrhea. Denies recent sick contacts, travel history. Workup in the ED significant for sodium 117 which improved to 1L NS bolus after admission. Case discussed with ED provider and she was made to admit patient for hyponatremia. Hospital Course Hospital Course Hospital Course: Has human metapneumovirus. UA positive for blood, bacteria. Not a great suspicion for UTI, as patient without symptoms. But improved with ceftriaxone. Discharged levofloxacin. Former smoker, referred to urology for hematuria evaluation. Exam Data for Last 24 hours Vital signs and Labs for Last 24 Hours: Temp Pulse Resp BP Pulse Ox O2 Del Method 97.5 F L 84 20 137/65 96 Room Air 04/19/25 08:00 04/19/25 08:00 04/19/25 08:00 04/19/25 08:00 04/19/25 08:00 04/19/25 08:02 Laboratory Results - last 24 hr 04/18/25 12:33: SARS-CoV-2 (PCR) Not detected, Influenza A Untype (PCR) Not detected, Influenza Type B (PCR) Not detected 04/18/25 12:43: WBC 6.5, RBC 3.15 L, Hgb 12.3 L, Hct 29.3 L, MCV 93.0, MCH 39.0 H, MCHC 42.0 H*, RDW 15.2, Plt Count 180, MPV 8.9, Neut % (Auto) 75.7, Lymph % (Auto) 11.6, [place] % (Auto) 11.9 H, Eos % (Auto) 0.3, Baso % (Auto) 0.2, Neut # (Auto) 4.9, Lymph # (Auto) 0.8, [place] # (Auto) 0.8, Eos # (Auto) 0.0, Baso # (Auto) 0.0, D-Dimer 0.64 H, Sodium 117 L, Potassium 4.3, Chloride 90 L, Carbon Dioxide 21 L, Anion Gap 10.3, BUN 13, Creatinine 0.90, Estimated Creat Clear 67, Estimated GFR 83, Est GFR ( Amer) 101, Glucose 94, Lactate 0.8, Calcium 8.7, Magnesium 1.6, Total Bilirubin 1.2, AST 32, ALT 15, Alkaline Phosphatase 78, Total Creatine Kinase 81, Troponin I < 0.01, NT-Pro-B Natriuret Pep 268 H, Total Protein 7.3, Albumin 4.0, Globulin 3.3 H, Albumin/Globulin Ratio 1.2, Lipase 80, TSH 2.22, Thyroxine (T4) 6.9 04/18/25 12:45: VBG pH 7.41, VBG pCO2 33.4 L, VBG pO2 39.7, VBG HCO3 20.7 L, VBG Total CO2 21.8 L, VBG O2 Saturation 73.6 H, VBG Base Excess -3.9 L, VBG Lactic Acid 1.4 04/18/25 13:46: Urine Color Yellow, Urine Appearance Clear, Urine pH 6.5, Ur Specific [place] 1.015, Urine Protein Trace, Urine Glucose (UA) Negative, Urine Ketones 2+, Urine Blood Negative, Urine Nitrate Negative, Urine Bilirubin Negative, Urine Urobilinogen 0.2, Ur Leukocyte Esterase Negative, Urine RBC 5- 10, Urine WBC Occasional, Ur Squamous Epith Cells 5-10, Urine Bacteria 3+, Urine Mucus 4+ 04/18/25 15:27: Sodium 121 L, Potassium 4.4, Chloride 92 L, Carbon Dioxide 22, Anion Gap 11.4, BUN 13, Creatinine 0.80, Estimated Creat Clear 67, Estimated GFR 95, Est GFR ( Amer) 115, Glucose 99, Calcium 8.5, Troponin I < 0.01 04/18/25 17:15: Chlamy pneumoniae PCR Not detected, Adenovirus (PCR) Not detected, B. pertussis DNA (PCR) Not detected, Coronavirus OC43 (PCR) Not detected, Coronavirus HKU1 (PCR) Not detected, Coronavirus 229E (PCR) Not detected, SARS-CoV-2 (PCR) Not detected, Coronavirus NL63 (PCR) Not detected, Human Metapneumovir PCR Detected A, Influenza A (H1) PCR Not detected, Influ A (H1N1/09) PCR Not detected, Influenza A (H3) PCR Not detected, Influenza Type A (PCR) Not detected, Influenza Type B (PCR) Not detected, M. pneumoniae (PCR) Not detected, Parainfluenza 1 (PCR) Not detected, Parainfluenza 2 (PCR) Not detected, Parainfluenza 3 (PCR) Not detected, Parainfluenza 4 (PCR) Not detected, RSV (PCR) Not detected, Entero/Rhino (PCR) Not detected 04/18/25 22:35: Sodium 124 L, Potassium 4.0, Chloride 96 L, Carbon Dioxide 21 L, Anion Gap 11.0, BUN 12, Creatinine 0.60 L D, Estimated Creat Clear 70, Estimated GFR 133, Est GFR ( Amer) 161 D, Glucose 146 H D, Calcium 8.4, Troponin I < 0.01 04/19/25 06:30: WBC 3.7 L D, RBC 2.86 L, Hgb 11.7 L, Hct 27.0 L, MCV 94.4 H, MCH 40.9 H*, MCHC 43.3 H*, RDW 14.7, Plt Count 182, MPV 8.9, Neut % (Auto) 72.3, Lymph % (Auto) 13.3, [place] % (Auto) 13.6 H, Eos % (Auto) 0.0 L, Baso % (Auto) 0.0 L, Neut # (Auto) 2.7, Lymph # (Auto) 0.5 L, [place] # (Auto) 0.5, Eos # (Auto) 0.0, Baso # (Auto) 0.0, Sodium 125 L, Potassium 4.3, Chloride 99, Carbon Dioxide 23, Anion Gap 7.3, BUN 12, Creatinine 0.60 L, Estimated Creat Clear 69, Estimated GFR 133, Est GFR ( Amer) 161, Glucose 127 H, Calcium 7.8 L, Magnesium 2.4 H D, Total Bilirubin 0.5, AST 28, ALT 12, Alkaline Phosphatase 71, Total Protein 6.4, Albumin 3.5 D, Globulin 2.9, Albumin/Globulin Ratio 1.2 I & O for Last 24 hours: Intake & Output 04/16/25 04/17/25 04/18/25 04/19/25 23:59 23:59 23:59 23:59 Intake Total 320 / 1181 1341 / 1341 Output Total 450 / 450 400 / 400 Balance -130 / 731 941 / 941 Weight 72.575 kg 72.121 kg Results Data Completed and Pending Labs on day of discharge: Labs from last 24 hours 04/19/25 04/18/25 04/18/25 06:30 22:35 17:15 WBC 3.7 L D RBC 2.86 L Hgb 11.7 L Hct 27.0 L MCV 94.4 H MCH 40.9 H* MCHC 43.3 H* RDW 14.7 Plt Count 182 MPV 8.9 Neut % (Auto) 72.3 Lymph % (Auto) 13.3 [place] % (Auto) 13.6 H Eos % (Auto) 0.0 L Baso % (Auto) 0.0 L Neut # (Auto) 2.7 Lymph # (Auto) 0.5 L [place] # (Auto) 0.5 Eos # (Auto) 0.0 Baso # (Auto) 0.0 D-Dimer VBG pH VBG pCO2 VBG pO2 VBG HCO3 VBG Total CO2 VBG O2 Saturation VBG Base Excess VBG Lactic Acid Sodium 125 L 124 L Potassium 4.3 4.0 Chloride 99 96 L Carbon Dioxide 23 21 L Anion Gap 7.3 11.0 BUN 12 12 Creatinine 0.60 L 0.60 L D Estimated Creat Clear 69 70 Estimated GFR 133 133 Est GFR ( Amer) 161 161 D Glucose 127 H 146 H D Lactate Calcium 7.8 L 8.4 Magnesium 2.4 H D Total Bilirubin 0.5 AST 28 ALT 12 Alkaline Phosphatase 71 Total Creatine Kinase Troponin I < 0.01 NT-Pro-B Natriuret Pep Total Protein 6.4 Albumin 3.5 D Globulin 2.9 Albumin/Globulin Ratio 1.2 Lipase TSH Thyroxine (T4) Urine Color Urine Appearance Urine pH Ur Specific [place] Urine Protein Urine Glucose (UA) Urine Ketones Urine Blood Urine Nitrate Urine Bilirubin Urine Urobilinogen Ur Leukocyte Esterase Urine RBC Urine WBC Ur Squamous Epith Cells Urine Bacteria Urine Mucus Chlamy pneumoniae PCR Not detected Adenovirus (PCR) Not detected B. pertussis DNA (PCR) Not detected Coronavirus OC43 (PCR) Not detected Coronavirus HKU1 (PCR) Not detected Coronavirus 229E (PCR) Not detected SARS-CoV-2 (PCR) Not detected Coronavirus NL63 (PCR) Not detected Human Metapneumovir PCR Detected A Influenza A (H1) PCR Not detected Influ A (H1N1/09) PCR Not detected Influenza A (H3) PCR Not detected Influenza Type A (PCR) Not detected Influenza A Untype (PCR) Influenza Type B (PCR) Not detected M. pneumoniae (PCR) Not detected Parainfluenza 1 (PCR) Not detected Parainfluenza 2 (PCR) Not detected Parainfluenza 3 (PCR) Not detected Parainfluenza 4 (PCR) Not detected RSV (PCR) Not detected Entero/Rhino (PCR) Not detected 04/18/25 04/18/25 04/18/25 15:27 13:46 12:45 WBC RBC Hgb Hct MCV MCH MCHC RDW Plt Count MPV Neut % (Auto) Lymph % (Auto) [place] % (Auto) Eos % (Auto) Baso % (Auto) Neut # (Auto) Lymph # (Auto) [place] # (Auto) Eos # (Auto) Baso # (Auto) D-Dimer VBG pH 7.41 VBG pCO2 33.4 L VBG pO2 39.7 VBG HCO3 20.7 L VBG Total CO2 21.8 L VBG O2 Saturation 73.6 H VBG Base Excess -3.9 L VBG Lactic Acid 1.4 Sodium 121 L Potassium 4.4 Chloride 92 L Carbon Dioxide 22 Anion Gap 11.4 BUN 13 Creatinine 0.80 Estimated Creat Clear 67 Estimated GFR 95 Est GFR ( Amer) 115 Glucose 99 Lactate Calcium 8.5 Magnesium Total Bilirubin AST ALT Alkaline Phosphatase Total Creatine Kinase Troponin I < 0.01 NT-Pro-B Natriuret Pep Total Protein Albumin Globulin Albumin/Globulin Ratio Lipase TSH Thyroxine (T4) Urine Color Yellow Urine Appearance Clear Urine pH 6.5 Ur Specific [place] 1.015 Urine Protein Trace Urine Glucose (UA) Negative Urine Ketones 2+ Urine Blood Negative Urine Nitrate Negative Urine Bilirubin Negative Urine Urobilinogen 0.2 Ur Leukocyte Esterase Negative Urine RBC 5-10 Urine WBC Occasional Ur Squamous Epith Cells 5-10 Urine Bacteria 3+ Urine Mucus 4+ Chlamy pneumoniae PCR Adenovirus (PCR) B. pertussis DNA (PCR) Coronavirus OC43 (PCR) Coronavirus HKU1 (PCR) Coronavirus 229E (PCR) SARS-CoV-2 (PCR) Coronavirus NL63 (PCR) Human Metapneumovir PCR Influenza A (H1) PCR Influ A (H1N1/09) PCR Influenza A (H3) PCR Influenza Type A (PCR) Influenza A Untype (PCR) Influenza Type B (PCR) M. pneumoniae (PCR) Parainfluenza 1 (PCR) Parainfluenza 2 (PCR) Parainfluenza 3 (PCR) Parainfluenza 4 (PCR) RSV (PCR) Entero/Rhino (PCR) 04/18/25 04/18/25 12:43 12:33 WBC 6.5 RBC 3.15 L Hgb 12.3 L Hct 29.3 L MCV 93.0 MCH 39.0 H MCHC 42.0 H* RDW 15.2 Plt Count 180 MPV 8.9 Neut % (Auto) 75.7 Lymph % (Auto) 11.6 [place] % (Auto) 11.9 H Eos % (Auto) 0.3 Baso % (Auto) 0.2 Neut # (Auto) 4.9 Lymph # (Auto) 0.8 [place] # (Auto) 0.8 Eos # (Auto) 0.0 Baso # (Auto) 0.0 D-Dimer 0.64 H VBG pH VBG pCO2 VBG pO2 VBG HCO3 VBG Total CO2 VBG O2 Saturation VBG Base Excess VBG Lactic Acid Sodium 117 L Potassium 4.3 Chloride 90 L Carbon Dioxide 21 L Anion Gap 10.3 BUN 13 Creatinine 0.90 Estimated Creat Clear 67 Estimated GFR 83 Est GFR ( Amer) 101 Glucose 94 Lactate 0.8 Calcium 8.7 Magnesium 1.6 Total Bilirubin 1.2 AST 32 ALT 15 Alkaline Phosphatase 78 Total Creatine Kinase 81 Troponin I < 0.01 NT-Pro-B Natriuret Pep 268 H Total Protein 7.3 Albumin 4.0 Globulin 3.3 H Albumin/Globulin Ratio 1.2 Lipase 80 TSH 2.22 Thyroxine (T4) 6.9 Urine Color Urine Appearance Urine pH Ur Specific [place] Urine Protein Urine Glucose (UA) Urine Ketones Urine Blood Urine Nitrate Urine Bilirubin Urine Urobilinogen Ur Leukocyte Esterase Urine RBC Urine WBC Ur Squamous Epith Cells Urine Bacteria Urine Mucus Chlamy pneumoniae PCR Adenovirus (PCR) B. pertussis DNA (PCR) Coronavirus OC43 (PCR) Coronavirus HKU1 (PCR) Coronavirus 229E (PCR) SARS-CoV-2 (PCR) Not detected Coronavirus NL63 (PCR) Human Metapneumovir PCR Influenza A (H1) PCR Influ A (H1N1/09) PCR Influenza A (H3) PCR Influenza Type A (PCR) Influenza A Untype (PCR) Not detected Influenza Type B (PCR) Not detected M. pneumoniae (PCR) Parainfluenza 1 (PCR) Parainfluenza 2 (PCR) Parainfluenza 3 (PCR) Parainfluenza 4 (PCR) RSV (PCR) Entero/Rhino (PCR) DS: Diagnosis Discharge Diagnosis (1) Acute hyponatremia: Status: Acute Code(s): E87.1 - Hypo-osmolality and hyponatremia Meds Home Medications and Allergies Home Medications ?Medication ?Instructions ?Recorded ?Confirmed ?Type albuterol sulfate 90 mcg/actuation 2 puff inhalation Q 6HP PRN 04/18/25 04/19/25 History aerosol inhaler Shortness Of Breath losartan 100 mg tablet 100 mg PO DAILY 04/18/2506/05 History amlodipine 5 mg tablet 5 mg PO DAILY 04/19/2504/19 History levofloxacin 750 mg tablet 750 mg PO DAILY 5 days #5 t abs 04/19/25 Rx New Prescriptions to Start Prescriptions: levofloxacin Stanton Conte Allergies Allergy/AdvReac Type Severity Reaction Status Date / Time No Known Allergies Allergy Verified 04/18/25 12:04 Discharge Plan Disposition Patient Disposition: Home, Self-Care Condition: Fair Follow up Plan Follow up with: Stanton Mcdonald MD [Staff Physician, Urology] - 2 weeks Prescriptions/Medication Reconciliation: New levofloxacin 750 mg tablet 750 mg PO DAILY 5 Days Qty: 5 0RF Continued albuterol sulfate 90 mcg/actuation HFA aerosol inhaler 2 puff inhalation Q6HP PRN (Reason: Shortness Of Breath) losartan 100 mg tablet 100 mg PO DAILY Patient Comments: TAKE 1 TABLET BY MOUTH ONCE DAILY amlodipine 5 mg tablet 5 mg PO DAILY Patient Comments: TAKE 1 TABLET BY MOUTH ONCE DAILY Problem Reconciliation Problems Reviewed?: Yes Patient Discharge Instructions Patient Instructions: DI for Hyponatremia, Hyponatremia-Adult Print Language: Romanian Providers Primary Care Provider: Jolly Calvert Admit Provider: Stanton Conte Attending Provider: Stanton Conte
--- NOTE | 2025-04-19 10:23 | HMH.PHAINT1 ---
Pharmacy Intervention Comments: MEDICATION RECONCILIATION COMPLETE USING RX BOTTLES PROVIDED BY PATIENT. I CLARIFIED WITH GINNY THAT THE PATIENT STATES ALL HE TAKES ARE THE BOTTLES PROVIDED.
[2025-04-19 13:00] LABS: Lymphocytes % 18 % (10-50); Monocytes % 10 % (2-9); Neutrophils % 72 % (42-76); Platelet Estimate Normal; RBC Morphology Normal; Total Cells Counted 100
--- OUTSIDE RECORDS SUMMARY | 2025-04-19 22:05 | XMS_ITS | Encounter Summary ---
Author Organization Healthcare Address [address] [place] [address] Care Team Providers Care Site Supervising Technical Operator Name Role Phone System, Provider Not In MD Primary Care Provider Unavailable Jolly Calvert APRN Primary Care Provider [phone] Encounter Details Date Type Department Care Team (Late st Contact Info) Description 04/25/2024 Orders Only External Location [address] [place] [address] Provider, External Social History Tobacco Use Types [...] EDT Appointment [facility] [address] [place] [address] 06/11/2025 1:30 PM EDT Office Visit [facility] [address] [place] [address] Jimmy Mcclure, DO [address] [facility] [address] [place] [address] documented as of this encounter Procedures Procedure [...] on filedocumented in this encounter Care Teams Site Supervising Technical Operator Relationship Specialty Start Date End Date System, Provider Not In, [place] [address] PCP - General Family Medicine 08/14/24 10/01/24 Jolly Calvert APRN [facility] [place] [address] PCP - General 10/02/24 documented as of this encounter
--- OUTSIDE RECORDS SUMMARY | 2025-04-19 22:05 | XMS_ITS | Patient Health Record ---
Author Organization [facility] Address [address] [place] [address] Care Team Providers Care House Parent Name Role Phone Jolly Calvert Primary Care Provider JOLLY CALVERT Unavailable Unavaila ble Migration, Provider Unavailable Unavailable Allergies No Known Allergies Results Component Value Reference Range Notes LIPID PANEL, STANDARD (7600) Reviewed date:01/19/2025 12:29:58 PM Interpretation: Performing Lab:CB, [facility] [address], [place] Michael Hudson Notes/Report: NON-FASTING; NON-FASTING; NON-FASTING; NON-FASTING CHOLESTEROL, TOTAL 207 <200 mg/dL HDL CHOLESTEROL 98 > OR = 40 mg/dL TRIGLYCERIDES 36 <150 mg/dL LDL-CHOLESTEROL 98 Reference range: <100 Desirable range <100 mg/dL for primary prevention; <70 mg/dL for patients with CHD or diabetic patients with > or = 2 CHD risk factors. LDL-C is now calculated using the Anoop-Charlotte calculation, which is a validated novel method providing better accuracy than the Friedewald equation in the estimation of LDL-C. Anoop SUAZO et al. GARY. 2013;310(19): 3460-9777 (http://education.[employer]ipping [employer].com/faq/JYZ248) CHOL/HDLC RATIO 2.1 <5.0 (calc) NON HDL CHOLESTEROL 109 <130 mg/dL (calc) For patients with diabetes plus 1 major ASCVD risk factor, treating to a non-HDL-C goal of <100 mg/dL (LDL-C of <70 mg/dL) is considered a therapeutic option. COMPREHENSIVE METABOLIC PANE L (48567) Reviewed date:01/19/2025 12:29:59 PM Interpretation: Performing Lab:[facility] [employer] [facility] Michael Hudson Notes/Report: NON-FASTING; NON-FASTING; NON-FASTING; NON-FASTING GLUCOSE 88 65-99 mg/dL Fasting reference interval UREA NITROGEN (BUN) 10 7-25 mg/dL CREATININE 0.69 0.70-1.28 mg/dL EGFR 99 > OR = 60 mL/min/1.73m2 BUN/CREATININE RATIO 14 6-22 (calc) SODIUM 128 135-146 mmol/L POTASSIUM 4.6 3.5-5.3 mmol/L CHLORIDE 93 98-110 mmol/L CARBON DIOXIDE 26 20-32 mmol/L CALCIUM 9.3 8.6-10.3 mg/dL PROTEIN, TOTAL 7.5 6.1-8.1 g/dL ALBUMIN 4.2 3.6-5.1 g/dL GLOBULIN 3.3 1.9-3.7 g/dL (calc) ALBUMIN/GLOBULIN RATIO 1.3 1.0-2.5 (calc) BILIRUBIN, TOTAL 1.0 0.2-1.2 mg/dL ALKALINE PHOSPHATASE 67 35-144 U/L AST 21 10-35 U/L ALT 8 9-46 U/L CBC (INCLUDES DIFF/PLT) (639 9) Reviewed date:01/19/2025 12:29:59 PM Interpretation: Performing Lab:[facility] [employer] [facility]snfDY[address] Michael Hudson Notes/Report: NON-FASTING; NON-FASTING; NON-FASTING; NON-FASTING WHITE BLOOD CELL COUNT 6.9 3.8-10.8 Thousand/ uL RED BLOOD CELL COUNT 4.54 4.20-5.80 Million/uL HEMOGLOBIN 14.0 13.2-17.1 g/dL HEMATOCRIT 41.8 38.5-50.0 % MCV 92.1 80.0-100.0 fL MCH 30.8 27.0-33.0 pg MCHC 33.5 32.0-36.0 g/dL For adults, a slight decrease in the calculated MCHC value (in the range of 30 to 32 g/dL) is most likely not clinically significant; however, it should be interpreted with caution in correlation with other red cell parameters and the patient's clinical condition. RDW 11.9 11.0-15.0 % PLATELET COUNT 177 140-400 Thousand/uL MPV 9.9 7.5-12.5 fL ABSOLUTE NEUTROPHILS 4464 4954-2700 cells/uL ABSOLUTE LYMPHOCYTES 2427 300-1631 cells/uL ABSOLUTE MONOCYTES 814 200-950 cells/uL ABSOLUTE EOSINOPHILS 428 15-500 cells/uL ABSOLUTE BASOPHILS 41 0-200 cells/uL NEUTROPHILS 64.7 LYMPHOCYTES 16.7 MONOCYTES 11.8 EOSINOPHILS 6.2 BASOPHILS 0.6 PSA, TOTAL (5363) Reviewed date:01/19/2025 12:29:59 PM Interpretation: Performing Lab:ADRYAN, [facility]IM[address] Michael Hudson Notes/Report: NON-FASTING; NON-FASTING; NON-FASTING; NON-FASTING PSA, TOTAL 2.18 < OR = 4.00 ng/mL The total PSA value from this assay system is standardized against the WHO standard. The test result will be approximately 20% lower when compared to the equimolar-standardized total PSA (Cody Moore). Comparison of serial PSA results should be interpreted with this fact in mind. This test was performed using the Siemens chemiluminescent method. Values obtained from different assay methods cannot be used interchangeably. PSA levels, regardless of value, should not be interpreted as absolute evidence of the presence or absence of disease. Reason For Referral No Information Medications Medication SIG (Take, Route, Frequency, Duration) Notes Start Date End Date Status Losartan Potassium 100 MG 1 tablet Orally Once a day for 90 days 02/16/2025 Active Metoprolol Succinate ER 25 MG 1 tablet Orally Once a day for 90 days 02/16/2025 Active ALBUTEROL (EQV-PROAIR HFA) 90 MCG/INH 2 INH INHALED EVERY 6 HOURS NEEDED FOR SHORTNESS OF BREATH for 30 DAYS *Please review for potential replacement for e-prescription and drug interaction check* Active Immunizations Vaccine Route Administration Date Status Comme nts Boostrix IM Intramuscular 12/04/2024 Administered Prevnar PCV-20 (Pneumococcal conjugate 20) IM Intramuscular 12/04/2024 Administered Social History Tobacco Use: Social History Observation Description Date Details (start date - stop date) Former Smoker NA - NA Smoking: Question Answer Notes Are you a: former smoker How long has it been since you last smoked? 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) Active confirmed Problem 47397301 Chronic cough (R05.3) Active confirmed Problem 0720423713 Neuroendocrine tumor (D3A.8) Active confirmed Vital Signs Heart Rate 78 /min 02/16/2025 Temperature 98 degrees Fahrenheit 02/16/2025 Blood pressure diastolic 78 mm Hg 02/16/2025 Height 65.8 in 02/16/2025 Blood pressure systolic 172 mm Hg 02/16/2025 Weight 162.8 lbs 02/16/2025 BMI 26.43 kg/m2 02/16/2025 Encounters Encounter Location Date Provider Diagnosis [facility] [address] [place] [address] 02/14/2025 Provider Migration Essential hypertension I10 and Lower extremity edema R60.0 [facility] [address] [place] [address] 12/04/2024 Sarah Florence Medicare annual wellness visit, subsequent Z00.00 ; Overweight E66.3 ; Body mass index [BMI] 26.0-26.9, adult Z68.26 ; Essential hypertension I10 ; Hyponatremia E87.1 ; Lower extremity edema R60.0 ; Neuroendocrine tumor D3A.8 ; Serrated adenoma of colon D12.6 ; Abnormal PSA R97.20 and Encounter for immunization Z23 [facility] [address] [place], [place] [address] 01/15/2025 [facility] Essential hypertensi on I10 ; Lower extremity edema R60.0 ; Hyponatremia E87.1 ; Neuroendocrine tumor D3A.8 and Abnormal PSA R97.20 [facility] [address] [place], [place] [address] 02/16/2025 Jolly Calvert Essential hypertensi on I10 ; Lower extremity edema R60.0 and Hyponatremia E87.1 Located within [facility] [address] [address] [facility] [address] [address] 02/10/2025 Jolly Calvert Essential hypertensi on I10 Assessments Encounter Date Diagnosis (ICD Code) Assessment Notes Treatment Notes Treatment Clinical Notes Section Notes 12/04/2024 Overweight (ICD-10 - E66.3) 12/04/2024 Medicare annual wellness visit, subsequent (ICD-10 - Z00.00) We reviewed wellness recommendations for his age. He declines any additional testing at this time but plans to keep follow-up with [facility] in January. Hopefully his labs will be repeated then, if not, we will order those. He is agreeable to starting treatment for his hypertension. Return precautions, goals of therapy reviewed. 01/15/2025 Essential hypertension (ICD-10 - I10) 02/10/2025 Essential hypertension (ICD-10 - I10) 02/14/2025 Essential hypertension (ICD-10 - I10) 02/14/2025 Lower extremity edema (ICD-10 - R60.0) 02/16/2025 Essential hypertension (ICD-10 - I10) Rec maximize losartan as noted but he will return in 3-4 weeks to repeat BMP to monitor electrolytes, if hyponatremia has worsened will need change of therapy - could consider hydralazine if needed add metoprolol XL at HS as well He will continue to monitor blood pressures and FU sooner if these remain elevated or if he experiences any side effects 01/15/2025 Lower extremity edema (ICD-10 - R60.0) Rec stop amlodipine and start losartan for management of HTN - will need to monitor sodium which is chronically low. Short course of lasix to help with edema/discomfort. elevate lower extremities as much as possible. return precautions reviewed. _update labs today. 02/16/2025 Lower extremity edema (ICD-10 - R60.0) Markedly improved, avoid CCB 02/16/2025 Hyponatremia (ICD-10 - E87.1) 01/15/2025 Hyponatremia (ICD-10 - E87.1) 12/04/2024 Body mass index [BMI] 26.0-26.9, adult (ICD-10 - Z68.26) 12/04/2024 Essential hypertension (ICD-10 - I10) 01/15/2025 Neuroendocrine tumor (ICD-10 - D3A.8) 01/15/2025 Abnormal PSA (ICD-10 - R97.20) 12/04/2024 Hyponatremia (ICD-10 - E87.1) 12/04/2024 Lower extremity edema (ICD-10 - R60.0) 12/04/2024 Neuroendocrine tumor (ICD-10 - D3A.8) 12/04/2024 Serrated adenoma of colon (ICD-10 - D12.6) 12/04/2024 Abnormal PSA (ICD-10 - R97.20) 12/04/2024 Encounter for immunization (ICD-10 - Z23) Plan Of Treatment Pending Test Test Name Order Date M-Urinalysis and Microscopic 11/26/2023 M-Basic Metabolic Panel 11/26/2023 M-PSA Total+% Free 11/26/2023 M-Sodium, Urine 11/26/2023 M-Osmolality, Urine 11/26/2023 BASIC METABOLIC PANEL (37597) 02/16/2025 Insurance Providers Payer Name Payer Address Payer Phone Subscriber Number Group Number Insured Name Patient Relationship to Insured Coverage Start Date Coverage End Date [place] [address] [place] [address] [id number] Ruben Mckeon Self - patient is the insured [facility] [address] [place] [address] [phone] [id number] Ruben Mckeon Self - patient is the insured [employer] [facility] Floor [address] [place] [address] [phone] ACL Ruben Mckeon Self - patient is the insured Medical (General) History Medical History History ICD Code Lung nodule - s/p resection. Neuroendocrine tumor, adenocarcinoma. Clear margins. Elevated PSA Surgical History Surgery Date(Month/Year) rt shoulder repair 2016 hernia repair 2018 nodule removal from rt lung 09/2024
--- OUTSIDE RECORDS SUMMARY | 2025-04-19 22:05 | XMS_ITS | Encounter Summary ---
Author Organization Healthcare Address [address] [place] [address] Care Team Providers Care Program Specialist Name Role Phone Jolly Calvert JUAN Primary Care Provider [phone]- [phone] Encounter Details Date Type Department Care Team ([facility] st Contact Info) Description 10/31/2024 Lab Requisition [facility] H Lab [address] [place] [address] Jimmy Mcclure, DO [address] [address] Neoplasm of uncertain behavior of trachea, bronchus [...] EDT Appointment [facility] A Radiology [address] [place] [address] 06/11/2025 1:30 PM EDT Office Visit Pav [facility] Head, Neck & Respiratory 800 [facility], 2nd [place] [address] Jimmy Mcclure, 800 [facility] 1st [place] [address] documented as of this encounter Procedures Procedure Name Priority Date/Time Associated Diagnosis Comments HISTORICAL SURGICAL PATHOLOGY ADDENDUM Routine 10/30/2024 Neoplasm of uncertain behavior of trachea, bronchus and lung documented in this encounter Results * Historical Surgical Pathology Addendum (10/30/2024) Historical Case Information This case was collected on 09/12/2024 was originally reported as case [id number]. The entire surgical pathology report can be viewed as a scanned document attached to this report. 11/07/2024 1:39 PM [facility] Case Report Historical Case Addendum/Amen dment Case: [id number] Authorizing Provider: Jimmy Mcclure DO Collected: 10/30/2024 Ordering Location: [facility] Lab Received: 10/31/2024 1258 Pathologist: Lucero Bell MD Specimen: [id number] 11/07/2024 1:39 PM [facility] Addendum 11/07/2024 1:39 PM EST [facility] at 1339 EST Addendum 2 11/07/2024 1:39 PM EST [facility] at 1339 EST Addendum 3 11/07/2024 1:39 PM EST [facility] at 1339 EST Addendum 4 11/07/2024 1:39 PM EST [facility] at 1339 EST Addendum 5 11/07/2024 1:39 PM EST [facility] at 1339 EST Tissue 10/30/2024 10/31/2024 12: 58 PM EST Jimmy Mcclure DO LAB PATHOLOGY ORDERABLES Sarah bradley Result Performing Organization Address City/State/[facility] Co de Phone Number [facility] [address] [place] [address] documented in this encounter Visit Diagnoses Diagnosis [...] documented as of this encounter Care Teams Program Specialist Relationship Specialty Start Date End Date Jolly Calvert APRN [address] [place] [address] [address] PCP - General 10/02/24 documented as of this encounter
--- OUTSIDE RECORDS SUMMARY | 2025-04-19 22:05 | XMS_ITS | Encounter Summary ---
Author Organization Healthcare Address [address] [place] [address] Care Team Providers Care Economics Department Chair Name Role Phone System, Provider Not In MD Primary Care Provider Unavailable Jolly Calvert COMPOSITE ENGINEER Primary Care Provider +1- [phone] Encounter Details Date Type Department Care Team (Late st Contact Info) Description 12/05/2023 Orders Only External Location [address] [place] [address] Jolly Calvert, COMPOSITE ENGINEER [address] [place] [address] Social History Tobacco Use Types Packs/Day Years [...] EDT Appointment [facility] Radiology [address] [place] [address] 06/11/2025 1:30 PM EDT Office Visit Pav [facility] Head, Neck & Respiratory 800 [facility], 2nd [place] [address] Jimmy Mcclure, DO 800 [facility] [address] [place] [address] documented as of this encounter Procedures Procedure [...] on filedocumented in this encounter Care Teams Economics Department Chair Relationship Specialty Start Date End Date System, Provider Not In, [place] [address] PCP - General Family Medicine 08/14/24 10/01/24 Jolly Calvert, JUAN [address] [place] [address] PCP - General 10/02/24 documented as of this encounter
--- OUTSIDE RECORDS SUMMARY | 2025-04-19 22:05 | XMS_ITS | Encounter Summary ---
Author Organization Healthcare Address [address] [place] [address] Care Team Providers Care Area Safety Manager Name Role Phone System, Provider Not In MD Primary Care Provider Unavailable Jolly Calvert APRN Primary Care Provider +1- [phone] Encounter Details Date Type Department Care Team (Late st Contact Info) Description 01/17/2024 Orders Only External Location [address] [place] [address] Provider, External Social History Tobacco Use Types [...] EDT Appointment [facility] [address] [place] [address] 06/11/2025 1:30 PM EDT Office Visit Pav [facility] Head[facility] Neck [facility] Respiratory [address] [place] [address] Jimmy Mcclure, DO 800 [facility] [address]st [place] [address] documented as of this encounter Procedures Procedure [...] on filedocumented in this encounter Care Teams Area Safety Manager Relationship Specialty Start Date End Date System, Provider Not In, [place] [address] PCP - General Family Medicine 08/14/24 10/01/24 Jolly Calvert APRN [address] [employer] [place], [place] [id number] PCP - General 10/02/24 documented as of this encounter
--- OUTSIDE RECORDS SUMMARY | 2025-04-19 22:05 | XMS_ITS | Encounter Summary ---
Author Organization Healthcare Address [address] [place] [address] Care Team Providers Care Autism Teacher Name Role Phone System, Provider Not In MD Primary Care Provider Unavailable Jolly Calvert GILL BOX FIXER Primary Care Provider +1- [phone] Reason for Referral * Consultation (Routine) - Authorized Specialty Diagnoses / Procedures Referred By Endy terrell Referred To Contact Nephrology Diagnoses Hyponatremia Jolly Calvert, GILL BOX FIXER [address] [place] [id number] Phone: tel: fax: [facility] [address] [facility] [address], [place] [address] Phone: tel: fax: Referral ID Status Reason Start Date Expiration Date Visits Requested Visits Authorized [id number] Authorized Specialty Services Required 12/11/2023 06/11/2025 1 1 Encounter Details Date Type Department Care Team (Latest Contact Info) Description 12/11/2023 Community Orders Community Practice [address] [place] [address] Jolly Calvert, GILL BOX FIXER [address] [id number] Hyponatremia (Primary Dx) Social History Tobacco Use [...] EDT Appointment [facility] Radiology [address] [place] [address] 06/11/2025 1:30 PM EDT Office Visit Pav [facility] Head[facility] Neck & Respiratory 800 [facility], [address]nd [place] [address] Jimmy Mcclure, DO 800 [facility] [address] [place] [address] Scheduled Referrals Name Type Priority Associated Diagnoses Order Schedule Ambulatory referral to Nephrology Outpatient Referral Routine Hyponatremia Ordered: 12/11/2023 documented as of this encounter Visit Diagnoses Diagnosis Hyponatremia- Primary Hyposmolality and/or hyponatremia documented in this encounter Care Teams Autism Teacher Relationship Specialty Start Date End Date System, Provider Not In, [address] [place] [address] PCP - General Family Medicine 08/14/24 10/01/24 Jolly Calvert APRN 1210 [facility] [address] [address] PCP - General 10/02/24 documented as of this encounter
--- OUTSIDE RECORDS SUMMARY | 2025-04-19 22:05 | XMS_ITS | Clinical Summary ---
Author Organization Healthcare Address [address] [place] [address] Care Team Providers Care Director Of Dementia Operations Name Role Phone Jolly Calvert JUAN Primary Care Provider +1- [phone] Allergies No known active allergies Medications methocarbamol [...] & Respiratory [address] [place] [address] Camilla Dodd PA Lung nodule 02/09/2025 12:44 PM EDT - 02/09/2025 11:59 PM EDT Hospital Encounter [facility] [address] [place] [address] Lung nodule Discharge Disposition: Home or Self Care 02/09/2025 Travel 02/03/2025 Travel 01/27/2025 Telephone Pav [facility] Head[facility] Neck & Respiratory 800 [facility], 2nd [place] [address] Felicia Reilly RN from Last [...] EDT Appointment [facility] Radiology [address] [place] [address] 06/11/2025 1:30 PM EDT Office Visit Pav CC Head, Neck & Respiratory 800 [facility], 2nd [place] [address] Jimmy Mcclure, DO [address] [address] Health Maintenance Due Date Last Done Comments [facility]-Depression Screening 1953 [facility]-Hepatitis C Screening 1955 [facility]-Medicare Annual Wellness (AWV) 1955 [facility]-Infant/Child/Adol SDOH Screenings 1953 [facility]- SDOH Screenings 1971 [facility]-Adult SDOH Screenings 1971 [facility]-Zoster Vaccines (1 of 2) 1972 CT Colonography 1998 Colonoscopy 1998 FIT-DNA 1998 FIT 1998 FOBT 1998 Sigmoidoscopy 1998 [facility]-Colorectal Cancer Screening 1998 [facility]-Abdominal Aortic Aneurysm (AAA) Screening 2018 XEF-[id number] Vaccine ( season) 2024 08/12/2023, 08/19/2021, 02/08/2021, [...] t from Last 3 [place] [address] ANTH Advance Directives * Full Code (Latest Code Status on File) Date Activated Date Inactivated Comments 09/12/2024 10:04 AM 09/14/2024 4:49 PM Question Answer Comments Patient has decision-making capacity? Yes Care Teams Director Of Dementia Operations Relationship Specialty Start Date End Date Jolly Calvert APRN [address] [place] [address] [address] PCP - General 10/02/24
--- OUTSIDE RECORDS SUMMARY | 2025-04-19 22:05 | XMS_ITS | Encounter Summary ---
Author Organization Healthcare Address [address] [place] [address] Care Team Providers Care Analysis Evaluator Name Role Phone System, Provider Not In MD Primary Care Provider Unavailable Jolly Calvert SALES REPRESENTATIVE JEWELRY Primary Care Provider +1- [phone] Encounter Details Date Type Department Care Team (Late st Contact Info) Description 12/26/2023 Orders Only External Location 800 [place] [address] Jolly Calvert, SALES REPRESENTATIVE JEWELRY [address] [facility] [address] [place] [address] Social History Tobacco Use Types Packs/Day Years [...] EDT Appointment [facility] Radiology [address] [place] [address] 06/11/2025 1:30 PM EDT Office Visit Pav CC Head, Neck & Respiratory 800 [facility], 2nd [place] [address] Jimmy Mcclure, DO 800 [facility] 1[address] [place] [address] documented as of this encounter Procedures Procedure [...] on filedocumented in this encounter Care Teams Analysis Evaluator Relationship Specialty Start Date End Date System, Provider Not In, [place] [address] PCP - General Family Medicine 08/14/24 10/01/24 Jolly Calvert, JUAN [facility] [place] [address] PCP - General 10/02/24 documented as of this encounter
--- NOTE | 2025-04-20 11:16 | SW/DCPLANNER ---
Spoke with patient on the phone. Patient stated that he is doing very well. Patient stated that he is aware of his upcoming appointment. Patient stated that he was able to get his new medicine picked up from [facility]. Patient stated that he has no concerns or questions at this time. Jose Trujillo
== END 2025-04-19 11:16 | disposition home or self-care (01) | DRG 641 ==
LOC: ER 15:37 → 2ND 15:51
PROVIDERS: Nurse Practitioner; Admitting Provider Student in an Organized Health Care Education/Training Program; Emergency Provider Emergency Medicine; PCP Nurse Practitioner Family; Visit Provider Student in an Organized Health Care Education/Training Program
DX: E87.1 Hypo-osmolality and hyponatremia (principal); N39.0 Urinary tract infection, site not specified; I10 Essential (primary) hypertension; E86.1 Hypovolemia; B34.8 Other viral infections of unspecified site; Z85.118 Personal history of other malignant neoplasm of bronchus and lung; Z87.891 Personal history of nicotine dependence
CPT/HCPCS: 36415; 70450; 71046; 72125; 80048; 80053; 81001; 82550; 82803; 83605; 83690; 83735; 83880; 84436; 84443; 84484; 85007; 85025; 85378; 87040; 87086; 87633; 87636; 93005; G0378; J0696; J1650; J1885; J2919; J3475; J7030